=== PATIENT | female | born 1945 | race Caucasian/White ===

== ENCOUNTER 2017-05-28 07:50 | Day surgery (SDC) | payer MEDICARE, BC ==
[~2017-05-28 07:50] MED LIST: Lactated Ringers 1,000 ML IV SCH; Lidocaine 1%/Sod Bicarbonate in NS 8.4% 1 ML Syringe IDERM PRN; Sodium Chloride 0.9% 10 ML Syringe FLUSH PRN
--- NOTE | 2017-05-28 10:41 | PCM.PREANE ---
Preanesthetic Assessment - Anesthesia/Transfusion/Family Hx Anesthesia History: Prior Anesthesia Reaction (with LESLEY) Family History of Anesthesia Reaction: No Transfusion History: No Prior Transfusion(s) Intubation History: Unknown - Review of Systems General: No Symptoms Pulmonary: Shortness of Breath Cardiovascular: No Symptoms Gastrointestinal: No Symptoms Neurological: No Symptoms Other: Reports: None - Physical Assessment NPO Status Date: 05/27/17 NPO Status Time: 19:30 Pulse: 92 O2 Sat by Pulse Oximetry: 97 Respiratory Rate: 16 Blood Pressure: 185/91 Temperature: 98.9 C Vital Signs: Last Vital Signs Temp 37.2 C 05/28/17 08:00 Pulse 92 05/28/17 08:00 Resp 16 05/28/17 08:00 BP 185/91 H 05/28/17 08:00 Pulse Ox 97 05/28/17 08:00 Height: 1.6 m Weight: 45.359 kg ASA Class: 3 Mental Status: Alert & Oriented x3 Airway Class: Mallampati = 2 Dentition: Reports: Normal Dentition Thyro-Mental Finger Breadths: 2 Mouth Opening Finger Breadths: 3 ROM/Head Extension: Full Lungs: Other (insp crackles LLL) Cardiovascular: Regular Rate, Regular Rhythm, No Murmurs - Allergies Allergies/Adverse Reactions: Allergies Allergy/AdvReac Type Severity Reaction Status Date / Time aspirin Allergy Anaphylactic Verified 05/27/17 16:41 Shock garlic Allergy Indigestion Verified 05/27/17 16:41 - Acknowledgements Anesthesia Type Planned: MAC Pt an Appropriate Candidate for the Planned Anesthesia: Yes Alternatives and Risks of Anesthesia Discussed w Pt/Guardian: Yes Pt/Guardian Understands and Agrees with Anesthesia Plan: Yes PreAnesthesia Questionnaire HEENT History: Reports: Impaired Vision, Other (See Below) Other HEENT History: wears glasses, contacts Cardiovascular History: Reports: Hypertension Respiratory History: Reports: Bronchitis, Recurrent, COPD, SOB, Other (See Below ) (pt diagnosed with lung CA 2014) Other Respiratory History: bilateral lung cancer Gastrointestinal History: Reports: Chronic Constipation, GERD (pt states occas heartburn) Genitourinary History: Reports: Other (See Below) Other Genitourinary History: breast lumpectomy [employer] 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 Musculoskeletal History: Reports: Osteoarthritis Neurological History: Reports: Other (See Below) Other Neuro History: vertigo Psychiatric History: Reports: Anxiety Endocrine/Metabolic History: Reports: None Hematologic History: Reports: None Immunologic History: Reports: None Oncologic (Cancer) History: Reports: Breast, Lung Dermatologic History: Reports: Other (See Below) Other Dermatologic History: sebaceous cyst to back - Past Surgical History Cardiovascular Surgical History: Reports: None Respiratory Surgical History: Reports: Other (See Below) Other Respiratory Surgeries/Procedures: bronchoscopy GI Surgical History: Reports: Appendectomy Female Surgical History: Reports: Breast Biopsy, Hysterectomy Male Surgical History: Reports: None Endocrine Surgical History: Reports: None Musculoskeletal Surgical History: Reports: None Oncologic Surgical History: Reports: None Dermatological Surgical History: Reports: None - SUBSTANCE USE Smoking Status *Q: Current Every Day Smoker Recreational Drug Use History: No - HOME MEDS Home Medications: Home Meds Acetaminophen [Tylenol] 650 mg PO Q4H PRN 05/27/17 [History] Albuterol [Proair HFA] 2 puff INH Q4H PRN 05/27/17 [History] Ascorbic Acid [Vitamin C] 1,000 mg PO DAILY 05/27/17 [History] Benzonatate [Tessalon Perle] 200 mg PO TID PRN 05/27/17 [History] Cholecalciferol (Vitamin D3) [Vitamin D] 5,000 unit PO DAILY 05/27/17 [History] Dexamethasone [Dexamethasone] 8 mg PO ASDIRECTED 05/27/17 [History] Fluticasone/Salmeterol [Advair 500-50] 1 puff INH BID 05/27/17 [History] Folic Acid 1 mg PO DAILY 05/27/17 [History] Hydrochlorothiazide [Hydrochlorothiazide] 25 mg PO DAILY 05/27/17 [History] Hydrocodone/Acetaminophen [[place] 5-325] 1 tab PO Q4H PRN 05/27/17 [History] LORazepam [LORazepam] 1 tab PO Q6H PRN 05/27/17 [History] Megestrol [Megace 40 MG/ML Susp] 1 dose PO QID PRN 05/27/17 [History] Multivitamin [Daily Multiple Vitamin] 1 tab PO DAILY 05/27/17 [History] Nicotine [Nicoderm CQ] 14 mg TOP ASDIRECTED 05/27/17 [History] Ondansetron [Zofran Odt] 8 mg PO Q8H PRN 05/27/17 [History] Potassium Chloride [Klor-Con M20] 20 meq PO DAILY 05/27/17 [History] Saliva Substitution Combo No.9 [Biotene] 1 dose PO QID PRN 05/27/17 [History] Simvastatin [Zocor] 20 mg PO DAILY 05/27/17 [History] Tiotropium [Spiriva Handihaler] 2 puff INH DAILY 05/27/17 [History] buPROPion HCl [Wellbutrin Xl] 150 mg PO DAILY 05/27/17 [History] guaiFENesin [Mucinex] 600 mg PO BID PRN 05/27/17 [History] - CURRENT (IN HOUSE) MEDS Current Meds: Current Medications Lactated Ringer's (Ringers, Lactated) 1,000 mls @ 125 mls/hr IV ASDIRECTED PHILIP Stop: 05/28/17 23:00 Last Admin: 05/28/17 08:40 Dose: 125 mls/hr Lidocaine/Sodium Bicarbonate (Buffered Lidocaine 1% In Ns 8.4%) 0.25 ml IDERM ONETIME PRN PRN Reason: Prior to IV Start Stop: 05/28/17 18:00 Sodium Chloride (Saline Flush) 10 ml FLUSH ASDIRECTED PRN PRN Reason: Keep Vein Open Stop: 05/28/17 18:00
[2017-05-28] MEDS ORDERED: Propofol 200 MG/20 ML SDV ONE ×3 (10:47→11:36)
[2017-05-28] MEDS ORDERED: Lactated Ringers 1,000 ML ONE (11:38)
--- NOTE | 2017-05-28 12:00 | PCM.OPNOTE ---
- General Post-Op/Procedure Note Date of Surgery/Procedure: 05/28/17 Operative Procedure(s): colonoscopy to cecum Pre Op Diagnosis: abnormal transverse colon on PET scan Post-Op Diagnosis: Same Anesthesia Technique: MAC Primary Surgeon: Brannon Durham EBL in mLs: 0 Complications: None Condition: Good
--- NOTE | 2017-05-28 12:05 | PCM48HPAN ---
Post Anesthesia Note - EVALUATION WITHIN 48HRS OF ANESTHETIC Vital Signs in Normal Range: Yes Patient Participated in Evaluation: Yes Respiratory Function Stable: Yes Airway Patent: Yes Cardiovascular Function Stable: Yes Hydration Status Stable: Yes Pain Control Satisfactory: Yes Nausea and Vomiting Control Satisfactory: Yes Mental Status Recovered: Yes
--- NOTE | 2017-05-29 11:03 | OR ---
DATE OF OPERATION: 05/28/2017 SURGEON: Brannon Durham MD PREOPERATIVE DIAGNOSIS: Abnormal colon as per PET scan, and transverse colon. POSTOPERATIVE DIAGNOSIS: Abnormal colon as per PET scan, and transverse colon. OPERATION PERFORMED: Colonoscopy of cecum. FINDINGS: Normal study. ANESTHESIA: Done under IV sedation. DESCRIPTION OF PROCEDURE: The patient was taken to the endoscopy room, placed in a supine position, connected to monitoring equipment, and given IV sedation. She was placed in left lateral position. Perianal area was evaluated and is unremarkable. Rectal exam showed good sphincter tone. A video Olympus colonoscope was introduced into the rectum and threaded up to the cecum, where the appendicular orifice was noted. Prep was adequate, and there were pools of fecal material coating the cecum, ascending colon, and transverse colon, but these could be irrigated and sucked out. An excellent view of the cecum, ascending colon, transverse colon, descending colon, sigmoid colon, and rectum was obtained. The scope was slowly withdrawn showing this anatomy. CONDITION: The patient tolerated the procedure, and was sent to recovery room in a stable condition. POSTOPERATIVE FOLLOWUP: She will be followed up as needed in the clinic. ESTIMATED BLOOD LOSS: MMODAL /[id number]
== END 2017-05-28 12:34 | disposition home or self-care (01) ==
LOC: JD.SDS 07:50
PROVIDERS: ATTEND Surgery
DX: R93.3 Abnormal findings on diagnostic imaging of other parts of digestive tract (principal); K59.00 Constipation, unspecified; J44.9 Chronic obstructive pulmonary disease, unspecified; I10 Essential (primary) hypertension; M17.12 Unilateral primary osteoarthritis, left knee; C34.90 Malignant neoplasm of unspecified part of unspecified bronchus or lung; F17.210 Nicotine dependence, cigarettes, uncomplicated; Z88.6 Allergy status to analgesic agent; Z91.018 Allergy to other foods; Z79.51 Long term (current) use of inhaled steroids; Z79.899 Other long term (current) drug therapy; Z85.3 Personal history of malignant neoplasm of breast; Z82.5 Family history of asthma and other chronic lower respiratory diseases; Z82.49 Family history of ischemic heart disease and other diseases of the circulatory system; Z83.3 Family history of diabetes mellitus
CPT/HCPCS: J1642; J2704; J7050; J7120

== ENCOUNTER 2017-06-26 13:54 | Inpatient (IN) | payer MEDICARE, BC ==
[2017-06-26] MEDS ORDERED: Sodium Chloride 0.9% 10 ML Syringe FLUSH PRN (14:50)
[2017-06-26] MEDS ORDERED: Ondansetron 4 MG/2 ML SDV IVPUSH ONE (14:51)
[2017-06-26] MEDS: Sodium Chloride 0.9% 1,000 ML IV SCH ×3 (15:19→17:42)
--- NOTE | 2017-06-26 15:56 | CT ---
Head CT Technique: Multiple axial sections through the brain were obtained. Intravenous contrast was not utilized. Comparison: No previous intracranial imaging. Findings: Ventricles along the basal cisterns and sulci over convexities are mildly prominent. No abnormal parenchymal densities are seen. No evidence of intracranial hemorrhage. No midline shift or mass effect is seen. Slight atherosclerotic calcification is seen within the left vertebral vessel and carotid siphon. Bone window settings were reviewed which shows no acute abnormality. Visualized sinuses are clear. Impression: 1. Slight senescent change. 2. No acute intracranial abnormality is identified on noncontrast head CT. Diagnostic code #2
[2017-06-26] MEDS ORDERED: Sodium Chloride 0.9% 1,000 ML ONE (17:40)
--- NOTE | 2017-06-26 19:31 | EDM.PDOC ---
ED HPI GENERAL MEDICAL PROBLEM - General Chief Complaint: Syncope Stated Complaint: WEAKNESS/FALLING Time Seen by Provider: 06/26/17 14:23 Source of Information: Reports: Patient, Family History Limitations: Reports: No Limitations - History of Present Illness INITIAL COMMENTS - FREE TEXT/NARRATIVE: The patient presents today with generalized weakness, fall, and confusion. The patient has lung cancer and she is on chemo therapy. She last had chemo on June 03. She said she was doing good and 2 weeks ago she stepped wrong on her deck and she fell backward and hit her head. She had no LOC. She did not hurt her neck. She was seen by Dr Church the next day and he did a CT of her head. Since then she has not been doing well. She has a headache at times but none now. She has nausea and no appetite. She did not vomit. She is not drinking or eating much. She denies fever, chills, cough, chest pain, shortness of breath or abdominal pain. She has no dysuria. She is confused at home at times. She is not doing well. She was diagnosed with a concussion by Dr Church. Onset: Gradual Duration: Week(s): (2) Severity: Moderate Improves with: Reports: None Worsens with: Reports: None Associated Symptoms: Reports: Headaches, Loss of Appetite, Nausea/Vomiting. Denies: Confusion, Chest Pain, Cough, Fever/Chills, Shortness of Breath - Related Data Allergies Allergy/AdvReac Type Severity Reaction Status Date / Time aspirin Allergy Anaphylactic Verified 06/26/17 14:16 Shock garlic Allergy Indigestion Verified 06/26/17 14:16 Home Meds: Home Meds Acetaminophen [Tylenol] 650 mg PO Q4H PRN 05/27/17 [History] Albuterol [Proair HFA] 2 puff INH Q4H PRN 05/27/17 [History] Benzonatate [Tessalon Perle] 200 mg PO TID PRN 05/27/17 [History] Cholecalciferol (Vitamin D3) [Vitamin D] 5,000 unit PO DAILY 05/27/17 [History] Dexamethasone [Dexamethasone] 8 mg PO ASDIRECTED 05/27/17 [History] Fluticasone/Salmeterol [Advair 500-50] 1 puff INH BID 05/27/17 [History] Folic Acid 1 mg PO DAILY 05/27/17 [History] Hydrocodone/Acetaminophen [[place] 5-325] 1 tab PO Q4H PRN 05/27/17 [History] LORazepam [LORazepam] 1 tab PO Q6H PRN 05/27/17 [History] Megestrol [Megace 40 MG/ML Susp] 1 dose PO QID PRN 05/27/17 [History] Nicotine [Nicoderm CQ] 14 mg TOP ASDIRECTED 05/27/17 [History] Ondansetron [Zofran Odt] 8 mg PO Q8H PRN 05/27/17 [History] Saliva Substitution Combo No.9 [Biotene] 1 dose PO QID PRN 05/27/17 [History] Simvastatin [Zocor] 20 mg PO DAILY 05/27/17 [History] Tiotropium [Spiriva Handihaler] 2 puff INH DAILY 05/27/17 [History] buPROPion HCl [Wellbutrin Xl] 300 mg PO DAILY 05/27/17 [History] guaiFENesin [Mucinex] 600 mg PO BID PRN 05/27/17 [History] Past Medical History HEENT History: Reports: Impaired Vision, Other (See Below) Other HEENT History: wears glasses, contacts Cardiovascular History: Reports: Hypertension Respiratory History: Reports: Bronchitis, Recurrent, COPD, SOB, Other (See Below ) Other Respiratory History: bilateral lung cancer Gastrointestinal History: Reports: Chronic Constipation, GERD Genitourinary History: Reports: Other (See Below) Other Genitourinary History: breast lumpectomy [employer] 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: Musculoskeletal History: Reports: Osteoarthritis Neurological History: Reports: Other (See Below) Other Neuro History: vertigo Psychiatric History: Reports: Anxiety Endocrine/Metabolic History: Reports: None Hematologic History: Reports: None Immunologic History: Reports: None Oncologic (Cancer) History: Reports: Breast, Lung Dermatologic History: Reports: Other (See Below) Other Dermatologic History: sebaceous cyst to back - Past Surgical History Cardiovascular Surgical History: Reports: None Respiratory Surgical History: Reports: Other (See Below) Other Respiratory Surgeries/Procedures: bronchoscopy GI Surgical History: Reports: Appendectomy Female Surgical History: Reports: Breast Biopsy, Hysterectomy Endocrine Surgical History: Reports: None Musculoskeletal Surgical History: Reports: None Oncologic Surgical History: Reports: None Dermatological Surgical History: Reports: None Social & Family History - Tobacco Use Smoking Status *Q: Current Every Day Smoker Years of Tobacco use: 50 Packs/Tins Daily: 0.5 - Caffeine Use Caffeine Use: Reports: Coffee - Recreational Drug Use Recreational Drug Use: No Drug Use in Last 12 Months: No ED ROS GENERAL - Review of Systems Review Of Systems: See Below Constitutional: Reports: Weakness, Fatigue HEENT: Reports: No Symptoms Respiratory: Reports: No Symptoms Cardiovascular: Reports: No Symptoms GI/Abdominal: Reports: Decreased Appetite, Nausea. Denies: Abdominal Pain, Vomiting : Reports: No Symptoms Musculoskeletal: Reports: No Symptoms Skin: Reports: No Symptoms Neurological: Reports: Confusion, Headache ED EXAM, GENERAL - Physical Exam Exam: See Below Exam Limited By: No Limitations General Appearance: Alert, No Apparent Distress Ears: Normal External Exam Nose: Normal Inspection Head: Atraumatic, Normocephalic Neck: Normal Inspection Respiratory/Chest: No Respiratory Distress, Lungs Clear, Normal Breath Sounds Cardiovascular: Regular Rate, Rhythm, No Edema, No Murmur GI/Abdominal: Soft, Non-Tender, No Organomegaly, No Mass Back Exam: Normal Inspection Extremities: Normal Inspection Neurological: Alert, Oriented (to person, place and time. She was a little off with the day.), No Motor/Sensory Deficits EKG INTERPRETATION EKG Date: 06/26/17 Time: 15:36 Rhythm: NSR Rate (Beats/Min): 88 [place]: Normal P-Wave: Present QRS: Normal ST-T: Normal QT: Prolonged Course - Vital Signs Last Recorded V/S: Last Vital Signs Temp 97.1 F 06/26/17 14:12 Pulse 97 06/26/17 14:12 Resp 12 06/26/17 14:12 BP 172/92 H 06/26/17 14:12 Pulse Ox 100 06/26/17 14:12 - Orders/Labs/Meds Orders: Active Orders 24 hr Category Date Time Status Patient Status [ADT] Routine ADT 06/26/17 19:30 Active Cardiac Monitoring [RC] . DIRECTED Care 06/26/17 14:50 Active EKG Documentation Completion [RC] STAT Care 06/26/17 14:50 Active Peripheral IV Care [RC] . DIRECTED Care 06/26/17 14:50 Active INFLUENZA A+B AG SCREEN [RM] Stat Lab 06/26/17 18:55 Ordered UA W/MICROSCOPIC [URIN] Stat Lab 06/26/17 14:50 Ordered Sodium Chloride 0.9% [Normal Saline] 1,000 ml Med 06/26/17 15:00 Active IV .BOLUS Sodium Chloride 0.9% [Normal Saline] 1,000 ml Med 06/26/17 17:45 Active IV ASDIRECTED Sodium Chloride 0.9% [Saline Flush] Med 06/26/17 14:50 Active 10 ml FLUSH ASDIRECTED PRN Peripheral IV Insertion Adult [OM.PC] Stat Oth 06/26/17 14:50 Ordered Medication Orders Sodium Chloride (Normal Saline) 1,000 mls @ 1,000 mls/hr IV .BOLUS PHILIP Last Admin: 06/26/17 17:41 Dose: 1,000 mls/hr Infusion: 06/26/17 16:19 Dose: 1,000 mls/hr Admin: 06/26/17 15:19 Dose: 1,000 mls/hr Sodium Chloride (Normal Saline) 1,000 mls @ 150 mls/hr IV ASDIRECTED PHILIP Last Admin: 06/26/17 17:42 Dose: 150 mls/hr Sodium Chloride (Saline Flush) 10 ml FLUSH ASDIRECTED PRN PRN Reason: Keep Vein Open Last Admin: 06/26/17 15:22 Dose: 10 ml Labs: Laboratory Tests 06/26/17 06/26/17 Range/Units 15:05 15:05 WBC 6.23 (3.98-10.04) K/mm3 RBC 3.26 L (3.98-5.22) M/mm3 Hgb 10.6 L (11.2-15.7) gm/L Hct 32.2 L (34.1-44.9) % MCV 98.8 H (79.4-94.8) fl MCH 32.5 H (25.6-32.2) pg MCHC 32.9 (32.2-35.5) g/dl RDW Std Deviation 44.8 (36.4-46.3) fL Plt Count 237 (182-369) K/mm3 MPV 9.9 (9.4-12.3) fl Neut % (Auto) 65.1 (34.0-71.1) % Lymph % (Auto) 18.3 L (19.3-51.7) % Tripp % (Auto) 14.8 H (4.7-12.5) % Eos % (Auto) 0.8 (0.7-5.8) Baso % (Auto) 0.2 (0.1-1.2) % Neut # (Auto) 4.06 (1.56-6.13) K/mm3 Lymph # (Auto) 1.14 L (1.18-3.74) K/mm3 Tripp # (Auto) 0.92 H (0.24-0.36) K/mm3 Eos # (Auto) 0.05 (0.04-0.36) K/mm3 Baso # (Auto) 0.01 (0.01-0.08) K/mm3 Sodium 140 (136-145) mEq/L Potassium 3.5 (3.5-5.1) mEq/L Chloride 106 (98-107) mEq/L Carbon Dioxide 22 (21-32) mEq/L Anion Gap 15.5 H (5-15) BUN 14 (7-18) mg/dL Creatinine 0.7 (0.55-1.02) mg/dL Est Cr Clr Drug Dosing 51.41 mL/min Estimated GFR (MDRD) > 60 (>60) mL/min BUN/Creatinine Ratio 20.0 H (14-18) Glucose 77 L (80-115) mg/dL Calcium 8.9 (8.5-10.1) mg/dL Magnesium 1.5 L (1.8-2.4) mg/dl Total Bilirubin 0.5 (0.2-1.0) mg/dL AST 22 (15-37) U/L ALT 14 (14-59) U/L Alkaline Phosphatase 51 (46-116) U/L Total Protein 6.6 (6.4-8.2) g/dl Albumin 2.7 L (3.4-5.0) g/dl Globulin 3.9 gm/dL Albumin/Globulin Ratio 0.7 L (1-2) Meds: Medications Generic Name Dose Route Start Last Admin Trade Name Freq PRN Reason Stop Dose Admin Sodium Chloride 1,000 mls @ 1,000 mls/hr 06/26/17 15:00 06/26/17 17:41 Normal Saline IV 1,000 mls/hr .BOLUS PHILIP Administration Sodium Chloride 1,000 mls @ 150 mls/hr 06/26/17 17:45 06/26/17 17:42 Normal Saline IV 150 mls/hr ASDIRECTED PHILIP Administration Sodium Chloride 10 ml 06/26/17 14:50 06/26/17 15:22 Saline Flush FLUSH 10 ml ASDIRECTED PRN Administration Keep Vein Open Discontinued Medications Generic Name Dose Route Start Last Admin Trade Name Freq PRN Reason Stop Dose Admin Sodium Chloride Confirm 06/26/17 17:40 06/26/17 17:42 Normal Saline Administered 06/26/17 17:41 Not Given Dose 1,000 mls @ as directed .ROUTE .STK-MED ONE Ondansetron HCl 4 mg 06/26/17 14:51 06/26/17 15:21 Zofran IVPUSH 06/26/17 14:52 4 mg ONETIME ONE Administration - Re-Assessments/Exams Free Text/Narrative Re-Assessment/Exam: 06/26/17 19:33 I ordered an IV NS 1L bolus, zofran 4mg IV, labs, CT of her head and an EKG. Her EKG shows a NSR with no acute changes. Her Hgb was a little low at 10.6. Her anion gap was elevated at 15.5. Her BUN/creatinine ratio is elevated to 20. Her glucose was low at 77. She did eat. Her magnesium was low at 1.5. I feel she has a concussion, confusion, failure to thrive and dehydration. I feel she needs to be admitted. I called Dr Mariano and she accepted the patient. Departure - Departure Time of Disposition: 19:40 Disposition: Admitted As Inpatient 68 Condition: Fair Clinical Impression: Dehydration, Failure to thrive in adult, Confusion Lung cancer Qualifiers: Laterality: unspecified laterality Lung location: unspecified part of lung Qualified Code(s): C34.90 - Malignant neoplasm of unspecified part of unspecified bronchus or lung Concussion Qualifiers: Encounter type: sequela Loss of consciousness presence/duration: without LOC Qualified Code(s): S06.0X0S - Concussion without loss of consciousness, sequela Referrals: Joey Church Jr, MD [Primary Care Provider] - Forms: ED Department Discharge - My Orders Last 24 Hours: My Active Orders 06/26/17 14:50 Cardiac Monitoring [RC] . DIRECTED EKG Documentation Completion [RC] STAT Peripheral IV Care [RC] . DIRECTED UA W/MICROSCOPIC [URIN] Stat Sodium Chloride 0.9% [Saline Flush] 10 ml FLUSH ASDIRECTED PRN Peripheral IV Insertion Adult [OM.PC] Stat 06/26/17 15:00 Sodium Chloride 0.9% [Normal Saline] 1,000 ml IV .BOLUS 06/26/17 17:45 Sodium Chloride 0.9% [Normal Saline] 1,000 ml IV ASDIRECTED 06/26/17 18:55 INFLUENZA A+B AG SCREEN [RM] Stat 06/26/17 19:30 Patient Status [ADT] Routine - Assessment/Plan Last 24 Hours: My Active Orders 06/26/17 14:50 Cardiac Monitoring [RC] . DIRECTED EKG Documentation Completion [RC] STAT Peripheral IV Care [RC] . DIRECTED UA W/MICROSCOPIC [URIN] Stat Sodium Chloride 0.9% [Saline Flush] 10 ml FLUSH ASDIRECTED PRN Peripheral IV Insertion Adult [OM.PC] Stat 06/26/17 15:00 Sodium Chloride 0.9% [Normal Saline] 1,000 ml IV .BOLUS 06/26/17 17:45 Sodium Chloride 0.9% [Normal Saline] 1,000 ml IV ASDIRECTED 06/26/17 18:55 INFLUENZA A+B AG SCREEN [RM] Stat 06/26/17 19:30 Patient Status [ADT] Routine
[2017-06-26] MEDS ORDERED: Ondansetron 4 MG Tab.DIS PO PRN (20:28)
[2017-06-26] MEDS ORDERED: SALIVA SUBSTITUTION COMBO NO 9 PO PRN (20:28)
[2017-06-26] MEDS ORDERED: guaiFENesin 600 MG Tab.ER PO PRN (20:28)
[2017-06-26] MEDS ORDERED: Acetaminophen/HYDROcodone 325-5 MG Tab PO PRN (20:28)
[2017-06-26] MEDS ORDERED: Metoclopramide 10 MG/2 ML SDV IVPUSH PRN (20:34)
[2017-06-26] MEDS ORDERED: Magnesium Sulfate/Water 2 GM in Premix Bag 1 BAG IV ONE (20:35)
--- NOTE | 2017-06-26 20:35 | PCM.HP ---
H&P History of Present Illness - General Date of Service: 06/26/17 Admit Problem/Dx: Admission Diagnosis/Problem Admission Diagnosis/Problem Failure to thrive Source of Information: Patient, Family, Provider History Limitations: Reports: No Limitations - History of Present Illness Initial Comments - Free Text/Narative: 72 year old female who actively smokes tobacco presents with generalized weakness and confusion. The patient has a history of lung CA and has been getting CTX. She fell roughly 2 weeks ago and had a CT of the head that was unremarkable. The patient was seen by her PCP who diagnosed her with a concussion. She has been forgetful and confused reportedly since hitting her head after missing a step on her deck. The patient denies F/C, N/V but admits to decreased oral intake as well as a headache. Onset of Symptoms: Reports: Gradual Symptom Onset Date: 06/19/17 Duration of Symptoms: Reports: Week(s):, Getting Worse Location: Reports: Generalized Severity: Moderate Improves with: Reports: Medication Worsens with: Reports: None Associated Symptoms: Reports: Headaches, Loss of Appetite, Nausea/Vomiting, Weakness - Related Data Allergies/Adverse Reactions: Allergies Allergy/AdvReac Type Severity Reaction Status Date / Time aspirin Allergy Anaphylactic Verified 06/26/17 20:47 Shock garlic Allergy Indigestion Verified 06/26/17 20:47 Home Medications: Home Meds Acetaminophen [Tylenol] 650 mg PO Q4H PRN 05/27/17 [History] Albuterol [Proair HFA] 2 puff INH Q4H PRN 05/27/17 [History] Benzonatate [Tessalon Perle] 200 mg PO TID PRN 05/27/17 [History] Fluticasone/Salmeterol [Advair 500-50] 1 puff INH BID 05/27/17 [History] Folic Acid 1 mg PO DAILY 05/27/17 [History] Hydrocodone/Acetaminophen [Huger 5-325] 1 tab PO Q4H PRN 05/27/17 [History] LORazepam [LORazepam] 1 tab PO Q6H PRN 05/27/17 [History] Megestrol [Megace 40 MG/ML Susp] 20 ml PO DAILY 05/27/17 [History] Saliva Substitution Combo No.9 [Biotene] 1 dose PO QID PRN 05/27/17 [History] Simvastatin [Zocor] 20 mg PO DAILY 05/27/17 [History] Tiotropium [Spiriva Handihaler] 2 puff INH DAILY 05/27/17 [History] buPROPion HCl [Wellbutrin Xl] 300 mg PO DAILY 05/27/17 [History] guaiFENesin [Mucinex] 600 mg PO BID PRN 05/27/17 [History] Past Medical History HEENT History: Reports: Impaired Vision, Other (See Below) Other HEENT History: wears glasses, contacts Cardiovascular History: Reports: Hypertension Respiratory History: Reports: Bronchitis, Recurrent, COPD, SOB, Other (See Below ) Other Respiratory History: bilateral lung cancer Gastrointestinal History: Reports: Chronic Constipation, GERD Genitourinary History: Reports: Other (See Below) Other Genitourinary History: breast lumpectomy [employer] History: Reports: Musculoskeletal History: Reports: Osteoarthritis Neurological History: Reports: Other (See Below) Other Neuro History: vertigo Psychiatric History: Reports: Anxiety Endocrine/Metabolic History: Reports: None Hematologic History: Reports: None Immunologic History: Reports: None Oncologic (Cancer) History: Reports: Breast, Lung Dermatologic History: Reports: Other (See Below) Other Dermatologic History: sebaceous cyst to back - Past Surgical History Cardiovascular Surgical History: Reports: None Respiratory Surgical History: Reports: Other (See Below) Other Respiratory Surgeries/Procedures: bronchoscopy GI Surgical History: Reports: Appendectomy Female Surgical History: Reports: Breast Biopsy, Hysterectomy Endocrine Surgical History: Reports: None Musculoskeletal Surgical History: Reports: None Oncologic Surgical History: Reports: None Dermatological Surgical History: Reports: None Social & Family History - Tobacco Use Smoking Status *Q: Current Every Day Smoker Years of Tobacco use: 50 Packs/Tins Daily: 0.5 - Caffeine Use Caffeine Use: Reports: Coffee - Recreational Drug Use Recreational Drug Use: No Drug Use in Last 12 Months: No H&P Review of Systems - Review of Systems: Review Of Systems: See Below General: Reports: Weakness HEENT: Reports: No Symptoms Pulmonary: Reports: Shortness of Breath Cardiovascular: Reports: No Symptoms Gastrointestinal: Reports: No Symptoms Genitourinary: Reports: No Symptoms Musculoskeletal: Reports: No Symptoms Skin: Reports: No Symptoms Psychiatric: Reports: Confusion Neurological: Reports: No Symptoms Hematologic/Lymphatic: Reports: No Symptoms Immunologic: Reports: No Symptoms Exam - Exam Exam: See Below - Vital Signs Vital Signs: Last Vital Signs Temp 36.2 C 06/26/17 14:12 Pulse 97 06/26/17 14:12 Resp 12 06/26/17 14:12 BP 172/92 H 06/26/17 14:12 Pulse Ox 100 06/26/17 14:12 Weight: 43.545 kg - Exam Quality Assessment: Supplemental Oxygen, DVT Prophylaxis General: Alert, Oriented HEENT: Conjunctiva Clear, Nares Patent, Normal Nasal Septum, Pupils Equal, Pupils Reactive, PERRLA Neck: Trachea Midline Lungs: Normal Respiratory Effort Cardiovascular: Regular Rate, Regular Rhythm GI/Abdominal Exam: Normal Bowel Sounds, Soft, Non-Tender, No Organomegaly, No Distention (Female) Exam: Deferred Rectal (Female) Exam: Normal Exam, Normal Rectal Tone Back Exam: Normal Inspection Extremities: Normal Inspection, Non-Tender, Slow Capillary Refill Skin: Warm Neurological: Cranial Nerves Intact Neuro Extensive - Mental Status: Alert, Oriented x3 Neuro Extensive - Motor, Sensory, Reflexes: CN II-XII Intact Psychiatric: Alert, Normal Affect, Normal Mood - Patient Data Result Diagrams: 06/27/17 05:33 06/27/17 05:33 *Q Meaningful Use (ADM) - VTE *Q VTE Criteria *Q: - Stroke *Q Stroke Criteria *Q: - AMI *Q AMI Criteria *Q: - Problem List (1) Dehydration SNOMED Code(s): 80996330 ICD Code: E86.0 - DEHYDRATION Status: Acute Current Visit: Yes (2) Failure to thrive in adult SNOMED Code(s): 738140893 ICD Code: R62.7 - ADULT FAILURE TO THRIVE Status: Acute Current Visit: Yes (3) Lung cancer SNOMED Code(s): 921900296 ICD Code: C34.90 - MALIGNANT NEOPLASM OF UNSP PART OF UNSP BRONCHUS OR LUNG Status: Acute Current Visit: Yes Qualifiers: Laterality: unspecified laterality Lung location: unspecified part of lung Qualified Code(s): C34.90 - Malignant neoplasm of unspecified part of unspecified bronchus or lung Problem List Initiated/Reviewed/Updated: Yes Orders Last 24hrs: Active Orders 24 hr Category Date Time Status Activity as Tolerated [RC] .Routine Care 06/26/17 20:31 Ordered Clear Liquid Diet [DIET] Diet 06/27/17 Breakfast Ordered INFLUENZA A,B, H1N1 BY PCR [MREF] Routine Lab 06/26/17 20:32 Ordered MYCOPLASMA PNEUMONIAE IGM AB [CHEM] Routine Lab 06/27/17 05:00 Ordered STREP PNEUMONIAE ANTIGEN [MREF] Routine Lab 06/26/17 21:00 Ordered Benzonatate [Tessalon Perles] Med 06/26/17 20:28 Ordered 200 mg PO TID PRN Cholecalciferol (Vitamin D3) [Vitamin D] Med 06/27/17 09:00 Ordered 5,000 unit PO DAILY Fluticasone/Salmeterol Med 06/26/17 21:00 Ordered 1 puff INH BID Folic Acid Med 06/27/17 09:00 Ordered 1 mg PO DAILY Hydrocodone/Acetaminophen Med 06/26/17 20:28 Ordered 1 tab PO Q4H PRN LORazepam [Ativan] Med 06/26/17 20:28 Ordered 1 tab PO Q6H PRN Metoclopramide [Reglan] Med 06/26/17 20:34 Ordered 10 mg IVPUSH Q6H PRN Ondansetron Med 06/26/17 20:28 Ordered 8 mg PO Q8H PRN Saliva Substitution Combo No.9 [Biotene] Med 06/26/17 20:28 Ordered 1 dose PO QID PRN Simvastatin [Zocor] Med 06/27/17 09:00 Ordered 20 mg PO DAILY Tiotropium Med 06/27/17 09:00 Ordered 2 puff INH DAILY buPROPion [Wellbutrin XL] Med 06/27/17 09:00 Ordered 300 mg PO DAILY guaiFENesin [Mucinex] Med 06/26/17 20:28 Ordered 600 mg PO BID PRN Medication Orders Benzonatate (Tessalon Perles) 200 mg PO TID PRN PRN Reason: Cough Bupropion HCl (Wellbutrin Xl) 300 mg PO DAILY PHILIP Folic Acid (Folic Acid) 1 mg PO DAILY PHILIP Guaifenesin (Mucinex) 600 mg PO BID PRN PRN Reason: cold symptoms Sodium Chloride (Normal Saline) 1,000 mls @ 1,000 mls/hr IV .BOLUS PHILIP Last Admin: 06/26/17 17:41 Dose: 1,000 mls/hr Infusion: 06/26/17 16:19 Dose: 1,000 mls/hr Admin: 06/26/17 15:19 Dose: 1,000 mls/hr Sodium Chloride (Normal Saline) 1,000 mls @ 150 mls/hr IV ASDIRECTED PHILIP Last Admin: 06/26/17 17:42 Dose: 150 mls/hr Lorazepam (Ativan) mg PO Q6H PRN PRN Reason: Anxiety Non-Formulary Medication (Cholecalciferol (Vitamin D3) [Vitamin D]) 5,000 unit PO DAILY PHIILP Non-Formulary Medication (Fluticasone/Salmeterol) 1 puff INH BID PHILIP Non-Formulary Medication (Hydrocodone/Acetaminophen) 1 tab PO Q4H PRN PRN Reason: Pain Non-Formulary Medication (Ondansetron) 8 mg PO Q8H PRN PRN Reason: Nausea Non-Formulary Medication (Saliva Substitution Combo No.9 [Biotene]) 1 dose PO QID PRN PRN Reason: dry mouth Non-Formulary Medication (Tiotropium) 2 puff INH DAILY PHILIP Simvastatin (Zocor) 20 mg PO DAILY PHILIP Sodium Chloride (Saline Flush) 10 ml FLUSH ASDIRECTED PRN PRN Reason: Keep Vein Open Last Admin: 06/26/17 15:22 Dose: 10 ml Assessment/Plan Comment:: Impression: AMS improved after hydration; can not exclude infectious process Dehydration--decrease appetite ARF--pre-renal Hx of lung CA actively smoking tobacco requires Nicotine substitute. Hx of COPD Doubt syncopal episode Chronic HTN Anxiety Plan: IVF Infectious work up Home meds Tobacco cessation education Daily Labs Consult PT/OT/CM (re: ) DVT/GI prophylaxis
[2017-06-26] MEDS ORDERED: Albuterol 0.083% 2.5 MG/3 ML Neb Soln NEB PRN (20:43)
[2017-06-26] MEDS ORDERED: Albuterol/Ipratropium 3.0-0.5 MG/3 ML Neb Soln NEB PRN (20:43)
[2017-06-26] MEDS ORDERED: Temazepam 7.5 MG Cap PO PRN (20:44)
[2017-06-26] MEDS: Formoterol/Mometasone 200-5 MCG 8.8 GM Inhaler IH SCH (21:41)
[2017-06-26] MEDS: Mometasone Furoate Powder 220 MCG/Puff 14 Dose Inhaler INH SCH (23:14)
[2017-06-27] MEDS: Sodium Chloride 0.9% 1,000 ML IV SCH (01:30)
[2017-06-27] MEDS: Mometasone Furoate Powder 220 MCG/Puff 14 Dose Inhaler INH SCH (07:04)
[2017-06-27] MEDS: Tiotropium Inhaler 18 MCG Inhalation Powder Cap Kit of 5 INH SCH (08:29)
[2017-06-27] MEDS: Formoterol/Mometasone 200-5 MCG 8.8 GM Inhaler IH SCH (08:30)
[2017-06-27] MEDS ORDERED: Benzonatate 100 MG Cap PO PRN (09:00)
--- NOTE | 2017-06-27 09:35 | PCM.PN ---
- General Info Date of Service: 06/27/17 Functional Status: Reports: Ambulating - Review of Systems General: Reports: Weakness, Fatigue, Malaise HEENT: Reports: No Symptoms Pulmonary: Reports: Shortness of Breath Cardiovascular: Reports: No Symptoms Gastrointestinal: Reports: No Symptoms Genitourinary: Reports: No Symptoms Musculoskeletal: Reports: No Symptoms Skin: Reports: No Symptoms Neurological: Reports: No Symptoms Psychiatric: Reports: No Symptoms - Patient Data Vitals - Most Recent: Last Vital Signs Temp 36.3 C 06/27/17 08:13 Pulse 88 06/27/17 08:13 Resp 20 06/27/17 08:13 BP 157/89 H 06/27/17 08:13 Pulse Ox 95 06/27/17 08:36 Weight - Most Recent: 45.994 kg I&O - Last 24 Hours: Intake & Output 06/26/17 06/27/17 06/27/17 22:59 06:59 14:59 Intake Total 854 Output Total 850 Balance 4 Lab Results Last 24 Hours: Laboratory Results - last 24 hr 06/27/17 06/27/17 06/27/17 Range/Units 05:28 05:33 05:33 WBC 6.08 (3.98-10.04) K/mm3 RBC 2.99 L (3.98-5.22) M/mm3 Hgb 9.6 L (11.2-15.7) gm/L Hct 29.8 L (34.1-44.9) % MCV 99.7 H (79.4-94.8) fl MCH 32.1 (25.6-32.2) pg MCHC 32.2 (32.2-35.5) g/dl RDW Std Deviation 45.1 (36.4-46.3) fL Plt Count 187 (182-369) K/mm3 MPV 10.1 (9.4-12.3) fl Neut % (Auto) 76.0 H (34.0-71.1) % Lymph % (Auto) 9.5 L (19.3-51.7) % [place] % (Auto) 13.2 H (4.7-12.5) % Eos % (Auto) 0.5 L (0.7-5.8) Baso % (Auto) 0.3 (0.1-1.2) % Neut # (Auto) 4.62 (1.56-6.13) K/mm3 Lymph # (Auto) 0.58 L (1.18-3.74) K/mm3 Stan[place] # (Auto) 0.80 H (0.24-0.36) K/mm3 Eos # (Auto) 0.03 L (0.04-0.36) K/mm3 Baso # (Auto) 0.02 (0.01-0.08) K/mm3 Manual Slide Review Abnormal smear Sodium 140 (136-145) mEq/L Potassium 3.4 L (3.5-5.1) mEq/L Chloride 108 H (98-107) mEq/L Carbon Dioxide 20 L (21-32) mEq/L Anion Gap 15.4 H (5-15) BUN 8 (7-18) mg/dL Creatinine 0.6 (0.55-1.02) mg/dL Est Cr Clr Drug Dosing 63.35 mL/min Estimated GFR (MDRD) > 60 (>60) mL/min BUN/Creatinine Ratio 13.3 L (14-18) Glucose 89 (80-115) mg/dL Lactic Acid (0.4-2.0) mmol/L Calcium 7.7 L (8.5-10.1) mg/dL Magnesium 1.9 (1.8-2.4) mg/dl Troponin I < 0.017 (0.00-0.056) ng/mL C-Reactive Protein 7.3 H* (<1.0) mg/dL Urine Color Yellow (Yellow) Urine Appearance Slt cloudy H (Clear) Urine pH 6.5 (5.0-8.0) Ur Specific [place] 1.025 (1.005-1.030) Urine Protein 1+ H (Negative) Urine Glucose (UA) Negative (Negative) Urine Ketones 1+ H (Negative) Urine Occult Blood Negative (Negative) Urine Nitrite Negative (Negative) Urine Bilirubin Negative (Negative) Urine Urobilinogen 0.2 (0.2-1.0) Ur Leukocyte Esterase Negative (Negative) Urine RBC 0-5 (0-5) /hpf Urine WBC 0-5 (0-5) /hpf Ur Epithelial Cells 5-10 H (0-5) /hpf Urine Bacteria Moderate H (FEW) /hpf Urine Mucus Moderate H (FEW) /hpf Mycoplasma pneumon IgM Positive H (NEGATIVE) 06/27/17 Range/Units 05:33 WBC (3.98-10.04) K/mm3 RBC (3.98-5.22) M/mm3 Hgb (11.2-15.7) gm/L Hct (34.1-44.9) % MCV (79.4-94.8) fl MCH (25.6-32.2) pg MCHC (32.2-35.5) g/dl RDW Std Deviation (36.4-46.3) fL Plt Count (182-369) K/mm3 MPV (9.4-12.3) fl Neut % (Auto) (34.0-71.1) % Lymph % (Auto) (19.3-51.7) % [place] % (Auto) (4.7-12.5) % Eos % (Auto) (0.7-5.8) Baso % (Auto) (0.1-1.2) % Neut # (Auto) (1.56-6.13) K/mm3 Lymph # (Auto) (1.18-3.74) K/mm3 [place] # (Auto) (0.24-0.36) K/mm3 Eos # (Auto) (0.04-0.36) K/mm3 Baso # (Auto) (0.01-0.08) K/mm3 Manual Slide Review Sodium (136-145) mEq/L Potassium (3.5-5.1) mEq/L Chloride (98-107) mEq/L Carbon Dioxide (21-32) mEq/L Anion Gap (5-15) BUN (7-18) mg/dL Creatinine (0.55-1.02) mg/dL Est Cr Clr Drug Dosing mL/min Estimated GFR (MDRD) (>60) mL/min BUN/Creatinine Ratio (14-18) Glucose (80-115) mg/dL Lactic Acid 0.8 (0.4-2.0) mmol/L Calcium (8.5-10.1) mg/dL Magnesium (1.8-2.4) mg/dl Troponin I (0.00-0.056) ng/mL C-Reactive Protein (<1.0) mg/dL Urine Color (Yellow) Urine Appearance (Clear) Urine pH (5.0-8.0) Ur Specific [place] (1.005-1.030) Urine Protein (Negative) Urine Glucose (UA) (Negative) Urine Ketones (Negative) Urine Occult Blood (Negative) Urine Nitrite (Negative) Urine Bilirubin (Negative) Urine Urobilinogen (0.2-1.0) Ur Leukocyte Esterase (Negative) Urine RBC (0-5) /hpf Urine WBC (0-5) /hpf Ur Epithelial Cells (0-5) /hpf Urine Bacteria (FEW) /hpf Urine Mucus (FEW) /hpf Mycoplasma pneumon IgM (NEGATIVE) Farooq Results Last 24 Hours: Microbiology 06/26/17 22:15 Influenza Type A Antigen Screen - Final Nasal Aspirate, Unspecified NEGATIVE INFLUENZA A VIRUS AG Influenza Type B Antigen Screen - Final NEGATIVE INFLUENZA B VIRUS AG Med Orders - Current: Current Medications Hydrocodone Bitart/Acetaminophen (Bells 325-5 Mg) 1 tab PO Q4H PRN PRN Reason: Pain Albuterol (Proventil Neb Soln) 2.5 mg NEB Q4HRRT PRN PRN Reason: Shortness of Breath Albuterol/Ipratropium (Duoneb 3.0-0.5 Mg/3 Ml) 3 ml NEB QID PRN PRN Reason: Shortness of Breath Benzonatate (Tessalon Perles) 200 mg PO TID PRN PRN Reason: Cough Bupropion HCl (Wellbutrin Xl) 300 mg PO DAILY ON LICENSE OF [facility] Cholecalciferol (Vitamin D3) 5,000 units PO DAILY ON LICENSE OF [facility] Enoxaparin Sodium (Lovenox) 40 mg SUBCUT DAILY ON LICENSE OF [facility] Folic Acid (Folic Acid) 1 mg PO DAILY ON LICENSE OF [facility] Guaifenesin (Mucinex) 600 mg PO BID PRN PRN Reason: cold symptoms Lorazepam (Ativan) 1 mg PO Q6H PRN PRN Reason: Anxiety Metoclopramide HCl (Reglan) 10 mg IVPUSH Q6H PRN PRN Reason: Nausea/Vomiting Miscellaneous Information (Remove Patch) 1 ea TRDERM DAILY ON LICENSE OF [facility] Mometasone Furoate (Asmanex 220 Mcg) 0 puff INH BIDRT ON LICENSE OF [facility] Last Admin: 06/27/17 07:04 Dose: Not Given Mometasone Furoate/Formoterol Fumar (Dulera 200-5 Mcg) 2 puff IH BID ON LICENSE OF [facility] Last Admin: 06/27/17 08:30 Dose: 2 puff Nicotine (Habitrol) 21 mg TRDERM DAILY ON LICENSE OF [facility] Non-Formulary Medication (Saliva Substitution Combo No.9 [Biotene]) 1 dose PO QID PRN PRN Reason: dry mouth Ondansetron HCl (Zofran Odt) 8 mg PO Q8H PRN PRN Reason: Nausea Simvastatin (Zocor) 20 mg PO DAILY ON LICENSE OF [facility] Sodium Chloride (Saline Flush) 10 ml FLUSH ASDIRECTED PRN PRN Reason: Keep Vein Open Last Admin: 06/26/17 15:22 Dose: 10 ml Temazepam (Restoril) 7.5 mg PO BEDTIME PRN PRN Reason: Insomnia Tiotropium Anderson (Spiriva Handihaler) 18 mcg INH DAILY ON LICENSE OF [facility] Last Admin: 06/27/17 08:29 Dose: 1 cap Discontinued Medications Sodium Chloride (Normal Saline) 1,000 mls @ 1,000 mls/hr IV .BOLUS ON LICENSE OF [facility] Last Admin: 06/26/17 17:41 Dose: 1,000 mls/hr Sodium Chloride (Normal Saline) 1,000 mls @ 150 mls/hr IV ASDIRECTED ON LICENSE OF [facility] Last Admin: 06/27/17 01:30 Dose: 150 mls/hr Sodium Chloride (Normal Saline) Confirm Administered Dose 1,000 mls @ as directed .ROUTE .STK-MED ONE Stop: 06/26/17 17:41 Last Admin: 06/26/17 17:42 Dose: Not Given Magnesium Sulfate 2 gm/ Premix 50 mls @ 25 mls/hr IV ONETIME ONE Stop: 06/26/17 22:34 Last Admin: 06/26/17 21:49 Dose: 25 mls/hr Ondansetron HCl (Zofran) 4 mg IVPUSH ONETIME ONE Stop: 06/26/17 14:52 Last Admin: 06/26/17 15:21 Dose: 4 mg - Exam Quality Assessment: Supplemental Oxygen, DVT Prophylaxis General: Alert, Oriented, Cooperative, No Acute Distress HEENT: Pupils Equal, Pupils Reactive, EOMI Neck: Trachea Midline Lungs: Normal Respiratory Effort, Decreased Breath Sounds Cardiovascular: Regular Rate, Regular Rhythm GI/Abdominal Exam: Normal Bowel Sounds, Soft, Non-Tender, No Organomegaly, No Distention (Female) Exam: Deferred Back Exam: Normal Inspection Extremities: Normal Inspection, Non-Tender, No Pedal Edema Skin: Warm Wound/Incisions: Healing Well Neurological: No New Focal Deficit Psy/Mental Status: Alert, Normal Affect, Normal Mood - Problem List Review Problem List Initiated/Reviewed/Updated: Yes - My Orders Last 24 Hours: My Active Orders 06/26/17 20:52 Antiembolic Devices [RC] BID MELISSA Hose [Antiembolic Hose] [OM.PC] Routine 06/26/17 22:00 Mometasone Furoate [Asmanex 220 MCG] 0 puff INH BIDRT 06/26/17 23:38 Code Status [Resuscitation Status] Routine 06/27/17 09:00 Enoxaparin [Lovenox] 40 mg SUBCUT DAILY Remove Patch 1 ea TRDERM DAILY 06/28/17 05:00 MAGNESIUM [CHEM] DAILY 06/28/17 09:00 CXR [Chest 2V] [CR] Routine 06/29/17 05:00 MAGNESIUM [CHEM] DAILY - Plan Plan:: Impression: AMS improved after hydration; can not exclude infectious process Dehydration--decreased appetite ARF--pre-renal-->improved Hx of lung CA actively smoking tobacco requires Nicotine substitute. Hx of COPD Doubt syncopal episode Chronic HTN Anxiety Plan: IVF Infectious work up= Mycoplasma pneumonia, start Doxycycline Droplet isolation Home meds Tobacco cessation education Daily Labs Consult PT/OT/CM (re: ) DVT/GI prophylaxis
[2017-06-27] MEDS: Folic Acid 1 MG Tab PO SCH (10:26)
[2017-06-27] MEDS: buPROPion 150 MG Tab.ER PO SCH (10:26)
[2017-06-27] MEDS: Cholecalciferol (Vitamin D3) 1,000 Unit Tab PO SCH (10:27)
[2017-06-27] MEDS: Nicotine 21 MG/24 Hr Patch TRDERM SCH (10:27)
[2017-06-27] MEDS: Enoxaparin 40 MG/0.4 ML Syringe SUBCUT SCH (10:30)
[2017-06-27] MEDS: Simvastatin 20 MG Tab PO SCH (10:30)
[2017-06-27] MEDS: Potassium Chloride 20 MEQ Tab.ER PO SCH ×2 (10:51→22:56)
[2017-06-27] MEDS: Doxycycline 100 MG in Sodium Chloride 0.9% 100 ML IV SCH ×2 (11:33→22:58)
[2017-06-27] MEDS: hydrALAZINE 20 MG/ML SDV IVPUSH PRN (16:23)
[2017-06-27] MEDS ORDERED: Doxazosin 2 MG Tab PO ONE (17:54)
[2017-06-27] MEDS: ADVAIR INH SCH (21:04)
[2017-06-27] MEDS: cloNIDine 0.1 MG Tab PO SCH (22:56)
[2017-06-28] MEDS: ADVAIR INH SCH (06:44)
[2017-06-28] MEDS: Megestrol Susp 40 MG/ML 10 ML UD Cup PO SCH (08:32)
[2017-06-28] MEDS: Cholecalciferol (Vitamin D3) 1,000 Unit Tab PO SCH (08:32)
[2017-06-28] MEDS: cloNIDine 0.1 MG Tab PO SCH ×3 (08:33→20:20)
[2017-06-28] MEDS: buPROPion 150 MG Tab.ER PO SCH (08:33)
[2017-06-28] MEDS: Folic Acid 1 MG Tab PO SCH (08:34)
[2017-06-28] MEDS: Enoxaparin 40 MG/0.4 ML Syringe SUBCUT SCH (08:34)
[2017-06-28] MEDS: Simvastatin 20 MG Tab PO SCH (08:34)
[2017-06-28] MEDS: Nicotine 21 MG/24 Hr Patch TRDERM SCH (08:35)
[2017-06-28] MEDS: Doxycycline 100 MG in Sodium Chloride 0.9% 100 ML IV SCH ×2 (08:37→20:20)
[2017-06-28] MEDS: Tiotropium Inhaler 18 MCG Inhalation Powder Cap Kit of 5 INH SCH (09:12)
--- NOTE | 2017-06-28 10:48 | PCM.PN ---
- General Info Date of Service: 06/28/17 Admission Dx/Problem (Free Text): Discussed dietary options for diet, and the importance of starting the day with breakfast. Has had elevated BP, appears to not be responsive to apresoline. Functional Status: Reports: Pain Controlled, Tolerating Diet, Ambulating, Urinating - Review of Systems General: Reports: No Symptoms HEENT: Reports: No Symptoms Pulmonary: Reports: No Symptoms Cardiovascular: Reports: No Symptoms Gastrointestinal: Reports: No Symptoms Genitourinary: Reports: No Symptoms Musculoskeletal: Reports: No Symptoms Skin: Reports: No Symptoms Neurological: Reports: No Symptoms Psychiatric: Reports: No Symptoms - Patient Data Vitals - Most Recent: Last Vital Signs Temp 36.9 C 06/28/17 08:25 Pulse 111 H 06/28/17 08:20 Resp 19 06/28/17 08:20 BP 158/80 H 06/28/17 08:33 Pulse Ox 98 06/28/17 09:12 Weight - Most Recent: 45.042 kg I&O - Last 24 Hours: Intake & Output 06/27/17 06/28/17 06/28/17 22:59 06:59 14:59 Intake Total 200 100 Output Total 900 1175 Balance -700 -1075 Lab Results Last 24 Hours: Laboratory Results - last 24 hr 06/28/17 06/28/17 06/28/17 Range/Units 06:32 06:32 06:32 WBC 5.32 (3.98-10.04) K/mm3 RBC 3.11 L (3.98-5.22) M/mm3 Hgb 10.1 L (11.2-15.7) gm/L Hct 30.7 L (34.1-44.9) % MCV 98.7 H (79.4-94.8) fl MCH 32.5 H (25.6-32.2) pg MCHC 32.9 (32.2-35.5) g/dl RDW Std Deviation 45.0 (36.4-46.3) fL Plt Count 198 (182-369) K/mm3 MPV 9.9 (9.4-12.3) fl Neut % (Auto) 72.2 H (34.0-71.1) % Lymph % (Auto) 10.9 L (19.3-51.7) % [place] % (Auto) 15.0 H (4.7-12.5) % Eos % (Auto) 0.4 L (0.7-5.8) Baso % (Auto) 0.2 (0.1-1.2) % Neut # (Auto) 3.84 (1.56-6.13) K/mm3 Lymph # (Auto) 0.58 L (1.18-3.74) K/mm3 [place] # (Auto) 0.80 H (0.24-0.36) K/mm3 Eos # (Auto) 0.02 L (0.04-0.36) K/mm3 Baso # (Auto) 0.01 (0.01-0.08) K/mm3 Sodium 137 (136-145) mEq/L Potassium 4.5 (3.5-5.1) mEq/L Chloride 107 (98-107) mEq/L Carbon Dioxide 20 L (21-32) mEq/L Anion Gap 14.5 (5-15) BUN 6 L (7-18) mg/dL Creatinine 0.6 (0.55-1.02) mg/dL Est Cr Clr Drug Dosing 63.35 mL/min Estimated GFR (MDRD) > 60 (>60) mL/min BUN/Creatinine Ratio 10.0 L (14-18) Glucose 95 (80-115) mg/dL Lactic Acid 0.8 (0.4-2.0) mmol/L Calcium 8.8 (8.5-10.1) mg/dL Magnesium 1.6 L (1.8-2.4) mg/dl C-Reactive Protein 9.8 H* (<1.0) mg/dL Triglycerides 106 (<150) mg/dL Cholesterol 171 (<200) mg/dL LDL Cholesterol Direct 122 H* (<100) mg/dL HDL Cholesterol 32.0 L (40-59) mg/dL Med Orders - Current: Current Medications Hydrocodone Bitart/Acetaminophen ([place] 325-5 Mg) 1 tab PO Q4H PRN PRN Reason: Pain Albuterol (Proventil Neb Soln) 2.5 mg NEB Q4HRRT PRN PRN Reason: Shortness of Breath Albuterol/Ipratropium (Duoneb 3.0-0.5 Mg/3 Ml) 3 ml NEB QID PRN PRN Reason: Shortness of Breath Benzonatate (Tessalon Perles) 200 mg PO TID PRN PRN Reason: Cough Bupropion HCl (Wellbutrin Xl) 300 mg PO DAILY [facility] Last Admin: 06/28/17 08:33 Dose: 300 mg Cholecalciferol (Vitamin D3) 5,000 units PO DAILY [facility] Last Admin: 06/28/17 08:32 Dose: 5,000 units Clonidine HCl (Catapres) 0.1 mg PO TID [facility] Last Admin: 06/28/17 08:33 Dose: 0.1 mg Enoxaparin Sodium (Lovenox) 40 mg SUBCUT DAILY [facility] Last Admin: 06/28/17 08:34 Dose: 40 mg Folic Acid (Folic Acid) 1 mg PO DAILY [facility] Last Admin: 06/28/17 08:34 Dose: 1 mg Guaifenesin (Mucinex) 600 mg PO BID PRN PRN Reason: cold symptoms Last Admin: 06/27/17 16:25 Dose: 600 mg Hydralazine HCl (Apresoline) 20 mg IVPUSH Q6H PRN PRN Reason: Hypertension Last Admin: 06/27/17 16:23 Dose: 20 mg Doxycycline Hyclate 100 mg/ (Sodium Chloride) 100 mls @ 100 mls/hr IV Q12HR [facility] Last Admin: 06/28/17 08:37 Dose: 100 mls/hr Lorazepam (Ativan) 1 mg PO Q6H PRN PRN Reason: Anxiety Megestrol Acetate (Megace 40 Mg/Ml Susp) 800 mg PO DAILY [facility] Last Admin: 06/28/17 08:32 Dose: 800 mg Metoclopramide HCl (Reglan) 10 mg IVPUSH Q6H PRN PRN Reason: Nausea/Vomiting Miscellaneous Information (Remove Patch) 1 ea TRDERM DAILY [facility] Last Admin: 06/28/17 08:37 Dose: 1 ea Nicotine (Habitrol) 21 mg TRDERM DAILY [facility] Last Admin: 06/28/17 08:35 Dose: 21 mg Advair 500-50Pt (Own) 0 each INH BIDRT [facility] Last Admin: 06/28/17 06:44 Dose: 1 each Ondansetron HCl (Zofran Odt) 8 mg PO Q8H PRN PRN Reason: Nausea Simvastatin (Zocor) 20 mg PO DAILY [facility] Last Admin: 06/28/17 08:34 Dose: 20 mg Sodium Chloride (Saline Flush) 10 ml FLUSH ASDIRECTED PRN PRN Reason: Keep Vein Open Last Admin: 06/26/17 15:22 Dose: 10 ml Temazepam (Restoril) 7.5 mg PO BEDTIME PRN PRN Reason: Insomnia Tiotropium [place] (Spiriva Handihaler) 18 mcg INH DAILY [facility] Last Admin: 06/28/17 09:12 Dose: 1 cap Discontinued Medications Doxazosin Mesylate (Cardura) 2 mg PO ONETIME ONE Stop: 06/27/17 17:55 Last Admin: 06/27/17 18:38 Dose: 2 mg Sodium Chloride (Normal Saline) 1,000 mls @ 1,000 mls/hr IV .BOLUS [facility] Last Admin: 06/26/17 17:41 Dose: 1,000 mls/hr Sodium Chloride (Normal Saline) 1,000 mls @ 150 mls/hr IV ASDIRECTED [facility] Last Admin: 06/27/17 01:30 Dose: 150 mls/hr Sodium Chloride (Normal Saline) Confirm Administered Dose 1,000 mls @ as directed .ROUTE .STK-MED ONE Stop: 06/26/17 17:41 Last Admin: 06/26/17 17:42 Dose: Not Given Magnesium Sulfate 2 gm/ Premix 50 mls @ 25 mls/hr IV ONETIME ONE Stop: 06/26/17 22:34 Last Admin: 06/26/17 21:49 Dose: 25 mls/hr Mometasone Furoate (Asmanex 220 Mcg) 0 puff INH BIDRT [facility] Last Admin: 06/27/17 07:04 Dose: Not Given Mometasone Furoate/Formoterol Fumar (Dulera 200-5 Mcg) 2 puff IH BID [facility] Last Admin: 06/27/17 08:30 Dose: 2 puff Non-Formulary Medication (Saliva Substitution Combo No.9 [Biotene]) 1 dose PO QID PRN PRN Reason: dry mouth Ondansetron HCl (Zofran) 4 mg IVPUSH ONETIME ONE Stop: 06/26/17 14:52 Last Admin: 06/26/17 15:21 Dose: 4 mg Potassium Chloride (Klor-Con M20) 40 meq PO BID [facility] Stop: 06/28/17 21:01 Last Admin: 06/27/17 22:56 Dose: 40 meq - Exam Quality Assessment: Supplemental Oxygen, DVT Prophylaxis General: Alert, Oriented, Cooperative, No Acute Distress HEENT: Pupils Equal, Pupils Reactive, EOMI Neck: Supple, Trachea Midline Lungs: Normal Respiratory Effort, Decreased Breath Sounds Cardiovascular: Regular Rate, Regular Rhythm GI/Abdominal Exam: Normal Bowel Sounds, Soft, Non-Tender, No Organomegaly, No Distention (Female) Exam: Deferred Back Exam: Normal Inspection Extremities: Normal Inspection, No Pedal Edema, Normal Capillary Refill Skin: Warm Neurological: No New Focal Deficit Psy/Mental Status: Alert, Normal Affect, Normal Mood - Problem List Review Problem List Initiated/Reviewed/Updated: Yes - My Orders Last 24 Hours: My Active Orders 06/27/17 10:00 Doxycycline [Vibramycin] 100 mg Sodium Chloride 0.9% [Normal Saline] 100 ml IV Q12HR 06/27/17 15:55 hydrALAZINE [Apresoline] 20 mg IVPUSH Q6H PRN 06/27/17 21:00 Non-Formulary Medication [NF Drug] 0 each INH BIDRT 06/27/17 22:00 cloNIDine [Catapres] 0.1 mg PO TID 06/27/17 Dinner Heart Healthy Diet [DIET] 06/28/17 09:00 CXR [Chest 2V] [CR] Routine Megestrol [Megace 40 MG/ML Susp] 800 mg PO DAILY 06/29/17 05:00 MAGNESIUM [CHEM] DAILY - Plan Plan:: Impression: AMS resolved Dehydration--decreased appetite; improving ARF--pre-renal-->improved Hx of lung CA actively smoking tobacco requires Nicotine substitute. Hx of COPD Doubt syncopal episode Chronic HTN Anxiety Plan: IVF Infectious work up= Mycoplasma pneumonia, start Doxycycline Droplet isolation Home meds Tobacco cessation education Daily Labs Consult PT/OT/CM (re: HH) DVT/GI prophylaxis DC 24-48 hours
[2017-06-28] MEDS: Potassium Chloride 20 MEQ Tab.ER PO SCH (11:24)
[2017-06-28] MEDS: hydrALAZINE 20 MG/ML SDV IVPUSH PRN (12:23)
[2017-06-28] MEDS: Formoterol/Mometasone 200-5 MCG 8.8 GM Inhaler IH SCH (21:08)
[2017-06-29] MEDS: LORazepam 1 MG Tab PO PRN ×3 (00:50→18:38)
[2017-06-29] MEDS: Formoterol/Mometasone 200-5 MCG 8.8 GM Inhaler IH SCH ×2 (06:47→21:37)
[2017-06-29] MEDS: Tiotropium Inhaler 18 MCG Inhalation Powder Cap Kit of 5 INH SCH (08:37)
--- NOTE | 2017-06-29 08:44 | PCM.DCSUM1 ---
Discharge Summary - Discharge Data Discharge Date: 06/29/17 (Admit Date:06/26/17) Discharge Disposition: Home, Self-Care 01 Condition: Good - Discharge Plan Home Medications: Home Meds Acetaminophen [Tylenol] 650 mg PO Q4H PRN 05/27/17 [History] Albuterol [Proair HFA] 2 puff INH Q4H PRN 05/27/17 [History] Benzonatate [Tessalon Perle] 200 mg PO TID PRN 05/27/17 [History] Fluticasone/Salmeterol [Advair 500-50] 1 puff INH BID 05/27/17 [History] Folic Acid 1 mg PO DAILY 05/27/17 [History] Hydrocodone/Acetaminophen [[place] 5-325] 1 tab PO Q4H PRN 05/27/17 [History] LORazepam [LORazepam] 1 tab PO Q6H PRN 05/27/17 [History] Megestrol [Megace 40 MG/ML Susp] 20 ml PO DAILY 05/27/17 [History] Saliva Substitution Combo No.9 [Biotene] 1 dose PO QID PRN 05/27/17 [History] Simvastatin [Zocor] 20 mg PO DAILY 05/27/17 [History] Tiotropium [Spiriva Handihaler] 2 puff INH DAILY 05/27/17 [History] buPROPion HCl [Wellbutrin Xl] 300 mg PO DAILY 05/27/17 [History] guaiFENesin [Mucinex] 600 mg PO BID PRN 05/27/17 [History] Forms: ED Department Discharge Referrals: Joey Church Jr, MD [Primary Care Provider] - - Patient Data Vitals - Most Recent: Last Vital Signs Temp 98.2 F 06/29/17 03:36 Pulse 95 06/29/17 03:36 Resp 20 06/29/17 03:36 BP 153/84 H 06/29/17 03:36 Pulse Ox 96 06/29/17 08:37 Weight - Most Recent: 96 lb 8 oz I&O - Last 24 hours: Intake & Output 06/28/17 06/29/17 06/29/17 22:59 06:59 14:59 Intake Total 900 900 Output Total 500 450 Balance 400 450 Lab Results - Last 24 hrs: Laboratory Results - last 24 hr 06/29/17 06/29/17 06/29/17 Range/Units 06:10 06:10 06:10 WBC 6.10 (3.98-10.04) K/mm3 RBC 3.05 L (3.98-5.22) M/mm3 Hgb 9.7 L (11.2-15.7) gm/L Hct 30.2 L (34.1-44.9) % MCV 99.0 H (79.4-94.8) fl MCH 31.8 (25.6-32.2) pg MCHC 32.1 L (32.2-35.5) g/dl RDW Std Deviation 46.0 (36.4-46.3) fL Plt Count 214 (182-369) K/mm3 MPV 10.5 (9.4-12.3) fl Neut % (Auto) 68.6 (34.0-71.1) % Lymph % (Auto) 15.6 L (19.3-51.7) % [place] % (Auto) 14.1 H (4.7-12.5) % Eos % (Auto) 0.5 L (0.7-5.8) Baso % (Auto) 0.2 (0.1-1.2) % Neut # (Auto) 4.19 (1.56-6.13) K/mm3 Lymph # (Auto) 0.95 L (1.18-3.74) K/mm3 [place] # (Auto) 0.86 H (0.24-0.36) K/mm3 Eos # (Auto) 0.03 L (0.04-0.36) K/mm3 Baso # (Auto) 0.01 (0.01-0.08) K/mm3 Sodium 139 (136-145) mEq/L Potassium 3.9 (3.5-5.1) mEq/L Chloride 107 (98-107) mEq/L Carbon Dioxide 19 L (21-32) mEq/L Anion Gap 16.9 H (5-15) BUN 8 (7-18) mg/dL Creatinine 0.7 (0.55-1.02) mg/dL Est Cr Clr Drug Dosing 51.67 mL/min Estimated GFR (MDRD) > 60 (>60) mL/min BUN/Creatinine Ratio 11.4 L (14-18) Glucose 83 (80-115) mg/dL Lactic Acid 0.7 (0.4-2.0) mmol/L Calcium 9.2 (8.5-10.1) mg/dL Magnesium 1.6 L (1.8-2.4) mg/dl C-Reactive Protein 6.1 H* (<1.0) mg/dL Med Orders - Current: Current Medications Hydrocodone Bitart/Acetaminophen ([place] 325-5 Mg) 1 tab PO Q4H PRN PRN Reason: Pain Albuterol (Proventil Neb Soln) 2.5 mg NEB Q4HRRT PRN PRN Reason: Shortness of Breath Albuterol/Ipratropium (Duoneb 3.0-0.5 Mg/3 Ml) 3 ml NEB QID PRN PRN Reason: Shortness of Breath Benzonatate (Tessalon Perles) 200 mg PO TID PRN PRN Reason: Cough Bupropion HCl (Wellbutrin Xl) 300 mg PO DAILY [facility] Last Admin: 06/28/17 08:33 Dose: 300 mg Cholecalciferol (Vitamin D3) 5,000 units PO DAILY [facility] Last Admin: 06/28/17 08:32 Dose: 5,000 units Clonidine HCl (Catapres) 0.1 mg PO TID [facility] Last Admin: 06/28/17 20:20 Dose: 0.1 mg Enoxaparin Sodium (Lovenox) 40 mg SUBCUT DAILY [facility] Last Admin: 06/28/17 08:34 Dose: 40 mg Folic Acid (Folic Acid) 1 mg PO DAILY [facility] Last Admin: 06/28/17 08:34 Dose: 1 mg Guaifenesin (Mucinex) 600 mg PO BID PRN PRN Reason: cold symptoms Last Admin: 06/27/17 16:25 Dose: 600 mg Hydralazine HCl (Apresoline) 20 mg IVPUSH Q6H PRN PRN Reason: Hypertension Last Admin: 06/28/17 12:23 Dose: 20 mg Doxycycline Hyclate 100 mg/ (Sodium Chloride) 100 mls @ 100 mls/hr IV Q12HR [facility] Last Admin: 06/28/17 20:20 Dose: 100 mls/hr Lorazepam (Ativan) 1 mg PO Q6H PRN PRN Reason: Anxiety Last Admin: 06/29/17 00:50 Dose: 1 mg Megestrol Acetate (Megace 40 Mg/Ml Susp) 800 mg PO DAILY [facility] Last Admin: 06/28/17 08:32 Dose: 800 mg Metoclopramide HCl (Reglan) 10 mg IVPUSH Q6H PRN PRN Reason: Nausea/Vomiting Miscellaneous Information (Remove Patch) 1 ea TRDERM DAILY [facility] Last Admin: 06/28/17 08:37 Dose: 1 ea Mometasone Furoate/Formoterol Fumar (Dulera 200-5 Mcg) 2 puff IH BIDRT [facility] Last Admin: 06/29/17 06:47 Dose: 2 puff Nicotine (Habitrol) 21 mg TRDERM DAILY [facility] Last Admin: 06/28/17 08:35 Dose: 21 mg Ondansetron HCl (Zofran Odt) 8 mg PO Q8H PRN PRN Reason: Nausea Simvastatin (Zocor) 20 mg PO DAILY [facility] Last Admin: 06/28/17 08:34 Dose: 20 mg Sodium Chloride (Saline Flush) 10 ml FLUSH ASDIRECTED PRN PRN Reason: Keep Vein Open Last Admin: 06/26/17 15:22 Dose: 10 ml Temazepam (Restoril) 7.5 mg PO BEDTIME PRN PRN Reason: Insomnia Tiotropium [place] (Spiriva Handihaler) 18 mcg INH DAILY [facility] Last Admin: 06/29/17 08:37 Dose: 1 cap Discontinued Medications Doxazosin Mesylate (Cardura) 2 mg PO ONETIME ONE Stop: 06/27/17 17:55 Last Admin: 06/27/17 18:38 Dose: 2 mg Sodium Chloride (Normal Saline) 1,000 mls @ 1,000 mls/hr IV .BOLUS [facility] Last Admin: 06/26/17 17:41 Dose: 1,000 mls/hr Sodium Chloride (Normal Saline) 1,000 mls @ 150 mls/hr IV ASDIRECTED [facility] Last Admin: 06/27/17 01:30 Dose: 150 mls/hr Sodium Chloride (Normal Saline) Confirm Administered Dose 1,000 mls @ as directed .ROUTE .STK-MED ONE Stop: 06/26/17 17:41 Last Admin: 06/26/17 17:42 Dose: Not Given Magnesium Sulfate 2 gm/ Premix 50 mls @ 25 mls/hr IV ONETIME ONE Stop: 06/26/17 22:34 Last Admin: 06/26/17 21:49 Dose: 25 mls/hr Mometasone Furoate (Asmanex 220 Mcg) 0 puff INH BIDRT [facility] Last Admin: 06/27/17 07:04 Dose: Not Given Mometasone Furoate/Formoterol Fumar (Dulera 200-5 Mcg) 2 puff IH BID [facility] Last Admin: 06/27/17 08:30 Dose: 2 puff Non-Formulary Medication (Saliva Substitution Combo No.9 [Biotene]) 1 dose PO QID PRN PRN Reason: dry mouth Advair 500-50Pt (Own) 0 each INH BIDRT [facility] Last Admin: 06/28/17 06:44 Dose: 1 each Ondansetron HCl (Zofran) 4 mg IVPUSH ONETIME ONE Stop: 06/26/17 14:52 Last Admin: 06/26/17 15:21 Dose: 4 mg Potassium Chloride (Klor-Con M20) 40 meq PO BID [facility] Stop: 06/28/17 21:01 Last Admin: 06/28/17 11:24 Dose: Not Given *Q Meaningful Use (DIS) - VTE *Q VTE Criteria *Q: - Stroke *Q Stroke Criteria *Q: - AMI *Q AMI Criteria *Q:
--- NOTE | 2017-06-29 09:15 | CR ---
Chest: Two views of the chest were obtained. Comparison: No prior chest x-ray. Heart size is normal. Tortuous thoracic aorta is seen. Right-sided infusion catheter is seen. Lung markings are diffusely increased. Mild asymmetric densities are noted within the left midlung and left lower lung as well as right midlung. Lungs are hyperinflated compatible with emphysematous change. Mild degenerative change is seen within the spine. Minimal scoliosis is present. Impression: 1. Emphysematous change. Other findings as noted above. Without old study uncertain if current findings represent chronic change, acute areas of pneumonia or even changes of aspiration/atelectasis. Diagnostic code #3 Agree with preliminary report issued by [facility] ([facility] preliminary report dictated on 06/28/17, 10:48 AM Central Time)
[2017-06-29] MEDS ORDERED: Magnesium Sulfate/Water 2 GM in Premix Bag 1 BAG IV ONE (09:35)
[2017-06-29] MEDS: Simvastatin 20 MG Tab PO SCH (09:38)
[2017-06-29] MEDS: cloNIDine 0.1 MG Tab PO SCH (09:39)
[2017-06-29] MEDS: Cholecalciferol (Vitamin D3) 1,000 Unit Tab PO SCH (09:39)
[2017-06-29] MEDS: Megestrol Susp 40 MG/ML 10 ML UD Cup PO SCH (09:39)
[2017-06-29] MEDS: buPROPion 150 MG Tab.ER PO SCH (09:40)
[2017-06-29] MEDS: Folic Acid 1 MG Tab PO SCH (09:40)
[2017-06-29] MEDS: Enoxaparin 40 MG/0.4 ML Syringe SUBCUT SCH (09:40)
[2017-06-29] MEDS: Nicotine 21 MG/24 Hr Patch TRDERM SCH (09:41)
[2017-06-29] MEDS: Doxycycline 100 MG Cap PO SCH ×2 (10:41→21:00)
[2017-06-29] MEDS: Doxycycline 100 MG in Sodium Chloride 0.9% 100 ML IV SCH (11:17)
--- NOTE | 2017-06-29 13:42 | PCM.PN ---
- General Info Date of Service: 06/29/17 Admission Dx/Problem (Free Text): Failure to thrive. Subjective Update: In to see Lyndsay. She is sitting in bed. PT did walk with RT to qualify for oxygen. Saturations remained good although she did complain of being increasingly short of breath. Her blood pressures been high here. We will discontinue clonidine and start Dyazide and Norvasc at night by mouth. She will start that today and we will see how things go tomorrow. She is currently off oxygen. She still complains of being weak and short of breath with exertion. She is eating well. Probable discharge tomorrow. Functional Status: Reports: Pain Controlled, Tolerating Diet, Ambulating, Urinating. Denies: New Symptoms - Review of Systems General: Reports: Weakness HEENT: Reports: No Symptoms Pulmonary: Reports: Shortness of Breath. Denies: Cough, Sputum, Wheezing Cardiovascular: Reports: Dyspnea on Exertion. Denies: Chest Pain, Palpitations Gastrointestinal: Reports: No Symptoms. Denies: Abdominal Pain, Constipation, Diarrhea, Nausea, Vomiting Genitourinary: Reports: No Symptoms Musculoskeletal: Reports: No Symptoms Skin: Reports: No Symptoms Neurological: Reports: No Symptoms Psychiatric: Reports: No Symptoms - Patient Data Vitals - Most Recent: Last Vital Signs Temp 98.4 F 06/29/17 09:30 Pulse 96 06/29/17 09:30 Resp 17 06/29/17 09:30 BP 150/82 H 06/29/17 09:39 Pulse Ox 98 06/29/17 09:30 Weight - Most Recent: 96 lb 8 oz I&O - Last 24 Hours: Intake & Output 06/28/17 06/29/17 06/29/17 22:59 06:59 14:59 Intake Total 900 900 0 Output Total 500 450 Balance 400 450 0 Lab Results Last 24 Hours: Laboratory Results - last 24 hr 06/29/17 06/29/17 06/29/17 Range/Units 06:10 06:10 06:10 WBC 6.10 (3.98-10.04) K/mm3 RBC 3.05 L (3.98-5.22) M/mm3 Hgb 9.7 L (11.2-15.7) gm/L Hct 30.2 L (34.1-44.9) % MCV 99.0 H (79.4-94.8) fl MCH 31.8 (25.6-32.2) pg MCHC 32.1 L (32.2-35.5) g/dl RDW Std Deviation 46.0 (36.4-46.3) fL Plt Count 214 (182-369) K/mm3 MPV 10.5 (9.4-12.3) fl Neut % (Auto) 68.6 (34.0-71.1) % Lymph % (Auto) 15.6 L (19.3-51.7) % Cottle % (Auto) 14.1 H (4.7-12.5) % Eos % (Auto) 0.5 L (0.7-5.8) Baso % (Auto) 0.2 (0.1-1.2) % Neut # (Auto) 4.19 (1.56-6.13) K/mm3 Lymph # (Auto) 0.95 L (1.18-3.74) K/mm3 Cottle # (Auto) 0.86 H (0.24-0.36) K/mm3 Eos # (Auto) 0.03 L (0.04-0.36) K/mm3 Baso # (Auto) 0.01 (0.01-0.08) K/mm3 Sodium 139 (136-145) mEq/L Potassium 3.9 (3.5-5.1) mEq/L Chloride 107 (98-107) mEq/L Carbon Dioxide 19 L (21-32) mEq/L Anion Gap 16.9 H (5-15) BUN 8 (7-18) mg/dL Creatinine 0.7 (0.55-1.02) mg/dL Est Cr Clr Drug Dosing 51.67 mL/min Estimated GFR (MDRD) > 60 (>60) mL/min BUN/Creatinine Ratio 11.4 L (14-18) Glucose 83 (80-115) mg/dL Lactic Acid 0.7 (0.4-2.0) mmol/L Calcium 9.2 (8.5-10.1) mg/dL Magnesium 1.6 L (1.8-2.4) mg/dl C-Reactive Protein 6.1 H* (<1.0) mg/dL Med Orders - Current: Current Medications Hydrocodone Bitart/Acetaminophen (Moran 325-5 Mg) 1 tab PO Q4H PRN PRN Reason: Pain Albuterol (Proventil Neb Soln) 2.5 mg NEB Q4HRRT PRN PRN Reason: Shortness of Breath Albuterol/Ipratropium (Duoneb 3.0-0.5 Mg/3 Ml) 3 ml NEB QID PRN PRN Reason: Shortness of Breath Amlodipine Besylate (Norvasc) 5 mg PO BEDTIME [facility] Benzonatate (Tessalon Perles) 200 mg PO TID PRN PRN Reason: Cough Bupropion HCl (Wellbutrin Xl) 300 mg PO DAILY [facility] Last Admin: 06/29/17 09:40 Dose: 300 mg Cholecalciferol (Vitamin D3) 5,000 units PO DAILY [facility] Last Admin: 06/29/17 09:39 Dose: 5,000 units Doxycycline Hyclate (Vibramycin) 100 mg PO Q12H [facility] Last Admin: 06/29/17 10:41 Dose: 100 mg Enoxaparin Sodium (Lovenox) 40 mg SUBCUT DAILY [facility] Last Admin: 06/29/17 09:40 Dose: 40 mg Folic Acid (Folic Acid) 1 mg PO DAILY [facility] Last Admin: 06/29/17 09:40 Dose: 1 mg Guaifenesin (Mucinex) 600 mg PO BID PRN PRN Reason: cold symptoms Last Admin: 06/27/17 16:25 Dose: 600 mg Hydralazine HCl (Apresoline) 20 mg IVPUSH Q6H PRN PRN Reason: Hypertension Last Admin: 06/28/17 12:23 Dose: 20 mg Lorazepam (Ativan) 1 mg PO Q6H PRN PRN Reason: Anxiety Last Admin: 06/29/17 09:43 Dose: 1 mg Megestrol Acetate (Megace 40 Mg/Ml Susp) 800 mg PO DAILY [facility] Last Admin: 06/29/17 09:39 Dose: 800 mg Metoclopramide HCl (Reglan) 10 mg IVPUSH Q6H PRN PRN Reason: Nausea/Vomiting Miscellaneous Information (Remove Patch) 1 ea TRDERM DAILY [facility] Last Admin: 06/29/17 09:41 Dose: 1 ea Mometasone Furoate/Formoterol Fumar (Dulera 200-5 Mcg) 2 puff IH BIDRT [facility] Last Admin: 06/29/17 06:47 Dose: 2 puff Nicotine (Habitrol) 21 mg TRDERM DAILY [facility] Last Admin: 06/29/17 09:41 Dose: 21 mg Ondansetron HCl (Zofran Odt) 8 mg PO Q8H PRN PRN Reason: Nausea Simvastatin (Zocor) 20 mg PO DAILY [facility] Last Admin: 06/29/17 09:38 Dose: 20 mg Sodium Chloride (Saline Flush) 10 ml FLUSH ASDIRECTED PRN PRN Reason: Keep Vein Open Last Admin: 06/26/17 15:22 Dose: 10 ml Temazepam (Restoril) 7.5 mg PO BEDTIME PRN PRN Reason: Insomnia Tiotropium Faxon (Spiriva Handihaler) 18 mcg INH DAILY [facility] Last Admin: 06/29/17 08:37 Dose: 1 cap Triamterene/HCTZ (Dyazide 25-37.5 Mg) 1 each PO DAILY [facility] Discontinued Medications Clonidine HCl (Catapres) 0.1 mg PO TID [facility] Last Admin: 06/29/17 09:39 Dose: 0.1 mg Doxazosin Mesylate (Cardura) 2 mg PO ONETIME ONE Stop: 06/27/17 17:55 Last Admin: 06/27/17 18:38 Dose: 2 mg Sodium Chloride (Normal Saline) 1,000 mls @ 1,000 mls/hr IV .BOLUS [facility] Last Admin: 06/26/17 17:41 Dose: 1,000 mls/hr Sodium Chloride (Normal Saline) 1,000 mls @ 150 mls/hr IV ASDIRECTED [facility] Last Admin: 06/27/17 01:30 Dose: 150 mls/hr Sodium Chloride (Normal Saline) Confirm Administered Dose 1,000 mls @ as directed .ROUTE .STK-MED ONE Stop: 06/26/17 17:41 Last Admin: 06/26/17 17:42 Dose: Not Given Magnesium Sulfate 2 gm/ Premix 50 mls @ 25 mls/hr IV ONETIME ONE Stop: 06/26/17 22:34 Last Admin: 06/26/17 21:49 Dose: 25 mls/hr Doxycycline Hyclate 100 mg/ (Sodium Chloride) 100 mls @ 100 mls/hr IV Q12HR [facility] Last Admin: 06/29/17 11:17 Dose: Not Given Magnesium Sulfate 2 gm/ Premix 50 mls @ 25 mls/hr IV ONETIME ONE Stop: 06/29/17 11:34 Last Admin: 06/29/17 10:41 Dose: 25 mls/hr Mometasone Furoate (Asmanex 220 Mcg) 0 puff INH BIDRT [facility] Last Admin: 06/27/17 07:04 Dose: Not Given Mometasone Furoate/Formoterol Fumar (Dulera 200-5 Mcg) 2 puff IH BID [facility] Last Admin: 06/27/17 08:30 Dose: 2 puff Non-Formulary Medication (Saliva Substitution Combo No.9 [Biotene]) 1 dose PO QID PRN PRN Reason: dry mouth Advair 500-50Pt (Own) 0 each INH BIDRT [facility] Last Admin: 06/28/17 06:44 Dose: 1 each Ondansetron HCl (Zofran) 4 mg IVPUSH ONETIME ONE Stop: 06/26/17 14:52 Last Admin: 06/26/17 15:21 Dose: 4 mg Potassium Chloride (Klor-Con M20) 40 meq PO BID [facility] Stop: 06/28/17 21:01 Last Admin: 06/28/17 11:24 Dose: Not Given - Exam Quality Assessment: DVT Prophylaxis General: Alert, Oriented, Cooperative, No Acute Distress HEENT: Pupils Equal, Pupils Reactive, EOMI, Mucous Membr. Moist/[place] Neck: Supple, Trachea Midline, No JVD Lungs: Clear to Auscultation, Normal Respiratory Effort Cardiovascular: Regular Rate, Regular Rhythm GI/Abdominal Exam: Normal Bowel Sounds, Soft, Non-Tender, No Organomegaly, No Distention, No Abnormal Bruit, No Mass, Pelvis Stable (Female) Exam: Deferred Extremities: Normal Inspection, Normal Range of Motion, Non-Tender, No Pedal Edema, Normal Capillary Refill Peripheral Pulses: 1+: Posterior Tibial (L), Posterior Tibial (R), Dorsalis Pedis (L), Dorsalis Pedis (R), 2+: Radial (L), Radial (R) Skin: Warm, Dry, Intact Neurological: No New Focal Deficit Psy/Mental Status: Alert, Normal Affect, Normal Mood - Problem List & Annotations (1) Dehydration SNOMED Code(s): 79350875 Code(s): E86.0 - DEHYDRATION Status: Acute Current Visit: Yes (2) Failure to thrive in adult SNOMED Code(s): 197232436 Code(s): R62.7 - ADULT FAILURE TO THRIVE Status: Acute Current Visit: Yes (3) Lung cancer SNOMED Code(s): 075077549 Code(s): C34.90 - MALIGNANT NEOPLASM OF UNSP PART OF UNSP BRONCHUS OR LUNG Status: Acute Current Visit: Yes Qualifiers: Laterality: unspecified laterality Lung location: unspecified part of lung Qualified Code(s): C34.90 - Malignant neoplasm of unspecified part of unspecified bronchus or lung (4) Hypertension SNOMED Code(s): 04945446 Code(s): I10 - ESSENTIAL (PRIMARY) HYPERTENSION Status: Acute Priority: High Current Visit: Yes Qualifiers: Hypertension type: unspecified Qualified Code(s): I10 - Essential (primary ) hypertension (5) Hypomagnesemia SNOMED Code(s): 540969397 Code(s): E83.42 - HYPOMAGNESEMIA Status: Acute Priority: High Current Visit: Yes - Problem List Review Problem List Initiated/Reviewed/Updated: Yes - My Orders Last 24 Hours: My Active Orders 06/29/17 10:00 Doxycycline [Vibramycin] 100 mg PO Q12H 06/29/17 21:00 amLODIPine [Norvasc] 5 mg PO BEDTIME 06/30/17 09:00 HCTZ/Triamterene [Dyazide 25-37.5 MG] 1 each PO DAILY - Plan Plan:: Impression: AMS- resolved Dehydration--decreased appetite; improving ARF--pre-renal-->improved Hx of lung CA actively smoking tobacco requires Nicotine substitute. Hx of COPD Doubt syncopal episode Hypertension; unresponsive to hydralazine, stop clonidine -> start Dyazide and Norvasc Chronic HTN Anxiety Plan: IVF Infectious work up= Mycoplasma pneumonia, start Doxycycline -> switch to PO Droplet isolation Home meds Tobacco cessation education Daily Labs Consult PT/OT/CM (re: HH) DVT/GI prophylaxis DC tomorrow - home with 24/7 cares. LOS >96 hrs due to difficulty obtaining BP control; SNF vs Home with 24/7 cares
[2017-06-29] MEDS ORDERED: amLODIPine 5 MG Tab PO SCH (21:00)
[2017-06-30] MEDS: Formoterol/Mometasone 200-5 MCG 8.8 GM Inhaler IH SCH ×2 (05:29→07:44)
--- NOTE | 2017-06-30 06:41 | PCM.DCSUM1 ---
Discharge Summary - Hospital Course HPI Initial Comments: 72 year old female who actively smokes tobacco presents with generalized weakness and confusion. The patient has a history of lung CA and has been getting CTX. She fell roughly 2 weeks ago and had a CT of the head that was unremarkable. The patient was seen by her PCP who diagnosed her with a concussion. She has been forgetful and confused reportedly since hitting her head after missing a step on her deck. The patient denies F/C, N/V but admits to decreased oral intake as well as a headache. - Discharge Data Discharge Date: 06/30/17 (Admit date: 06/26/17) Discharge Disposition: Home, W Home Health Agency 06 Condition: Good - Discharge Diagnosis/Problem(s) (1) Dehydration SNOMED Code(s): 09902529 ICD Code: E86.0 - DEHYDRATION Status: Acute Current Visit: Yes (2) Failure to thrive in adult SNOMED Code(s): 861252045 ICD Code: R62.7 - ADULT FAILURE TO THRIVE Status: Acute Current Visit: Yes (3) Lung cancer SNOMED Code(s): 268552083 ICD Code: C34.90 - MALIGNANT NEOPLASM OF UNSP PART OF UNSP BRONCHUS OR LUNG Status: Acute Current Visit: Yes Qualifiers: Laterality: unspecified laterality Lung location: unspecified part of lung Qualified Code(s): C34.90 - Malignant neoplasm of unspecified part of unspecified bronchus or lung (4) Hypertension SNOMED Code(s): 34613909 ICD Code: I10 - ESSENTIAL (PRIMARY) HYPERTENSION Status: Acute Priority: High Current Visit: Yes Qualifiers: Hypertension type: unspecified Qualified Code(s): I10 - Essential (primary ) hypertension (5) Hypomagnesemia SNOMED Code(s): 816021305 ICD Code: E83.42 - HYPOMAGNESEMIA Status: Resolved Priority: High Current Visit: Yes - Patient Summary/Data Consults: Consultations 06/29/17 10:26 Consult to Occupational Therapy [OT Evaluation and Treatment] [CONS] Routine Consult to Physical Therapy [PT Evaluation and Treatment] [CONS] Routine Labs Pending at D/C: none Recommended Follow-up Testing/Procedures: Follow-up with PCP in 7-10 days. Follow-up with oncologist as directed prior. Hospital Course: Impression: AMS- resolved Dehydration--decreased appetite; improving ARF--pre-renal-->improved Hx of lung CA actively smoking tobacco requires Nicotine substitute. Hx of COPD Doubt syncopal episode Hypertension; unresponsive to hydralazine, stop clonidine -> start Dyazide and Norvasc Chronic HTN Anxiety Plan: IVF Infectious work up= Mycoplasma pneumonia, start Doxycycline -> switch to PO Droplet isolation Home meds Tobacco cessation education Daily Labs Consult PT/OT/CM (re: ) DVT/GI prophylaxis Lyndsay responded well to treatment. Her shortness of breath improved although she did still have some dyspnea with exertion. PT/OT work with her and suggested SNF rehabilitation stay versus home with 24/7 care. Family discussed and decided they would be capable of taking care of her 24/7. They were told that SNF placement is always an option should he decide they are unable to care for her. RT worked with her. She did have fairly significant hypertension during her stay. She was started on Dyazide in the morning and Norvasc for bedtime. She should follow-up with her primary care provider as dosages may need to be adjusted. She'll be discharged home today on course of doxycycline. She was instructed on the importance of eating properly. She has been a smoker and was on the patch while here. She has reports that she has been attempting to quit utilizing patches. She has several at home. We discussed the importance of stopping smoking with her condition. I offered to send a prescription for more patches, however she says that she has plenty at home. We discussed practical methods to stop smoking including the gum and patches. We discussed finding people who she can call when she has the urge to smoke. She was given the number for the [place] quit line. We also discussed how her PCP is an excellent resource to stop smoking. Her home medications were resumed. She does have an albuterol inhaler which she can utilize. She is to see her PCP in 7-10 days. She should follow-up with her oncologist as planned. I met with Lyndsay [id number] discussing her plan of care and diagnosis. At this time [place] [facility] and has difficulty getting to medical facilities. She does get extremely short of breath with exertion, which makes trips difficult. She would benefit from a home safety evaluation, as well as home health, PT/OT, and OR DIRECTOR services. Her PCP, Manjula Terrell, at [facility] can monitor her progress. She will be discharged home today with 17/11 care provided by family - Patient Instructions Diet: Heart Healthy Diet Activity: As Tolerated Notify Provider of: Fever, Increased Pain, Nausea and/or Vomiting (increasing shortness of breath or chest pain ) - Discharge Plan Prescriptions/Med Rec: Albuterol [IMW: Ventolin HFA] 1 puff INH .TWICE DAILY PRN #18 gm PRN Reason: wheezing/shortness of breath amLODIPine [Norvasc] 5 mg PO BEDTIME #20 tablet Doxycycline Calcium [IMW: Doxycycline] 100 mg PO Q12H #11 capsule HCTZ/Triamterene [Dyazide 25-37.5 MG] 1 each PO DAILY #20 cap Home Medications: Home Meds Acetaminophen [Tylenol] 650 mg PO Q4H PRN 05/27/17 [History] Albuterol [Proair HFA] 2 puff INH Q4H PRN 05/27/17 [History] Benzonatate [Tessalon Perle] 200 mg PO TID PRN 05/27/17 [History] Fluticasone/Salmeterol [Advair 500-50] 1 puff INH BID 05/27/17 [History] Folic Acid 1 mg PO DAILY 05/27/17 [History] Hydrocodone/Acetaminophen [[place] 5-325] 1 tab PO Q4H PRN 05/27/17 [History] LORazepam 1 tab PO Q6H PRN 05/27/17 [History] Megestrol [Megace 40 MG/ML Susp] 20 ml PO DAILY 05/27/17 [History] Saliva Substitution Combo No.9 [Biotene] 1 dose PO QID PRN 05/27/17 [History] Simvastatin [Zocor] 20 mg PO DAILY 05/27/17 [History] Tiotropium [Spiriva Handihaler] 2 puff INH DAILY 05/27/17 [History] buPROPion HCl [Wellbutrin Xl] 300 mg PO DAILY 05/27/17 [History] guaiFENesin [Mucinex] 600 mg PO BID PRN 05/27/17 [History] Albuterol [IMW: Ventolin HFA] 1 puff INH .TWICE DAILY PRN #18 gm 06/30/17 [Rx] Doxycycline Calcium [IMW: Doxycycline] 100 mg PO Q12H #11 capsule 06/30/17 [Rx] HCTZ/Triamterene [Dyazide 25-37.5 MG] 1 each PO DAILY #20 cap 06/30/17 [Rx] amLODIPine [Norvasc] 5 mg PO BEDTIME #20 tablet 06/30/17 [Rx] Patient Handouts: Steps to Quit Smoking, [id number], Community-Acquired Pneumonia, Adult, [id number] Forms: ED Department Discharge Referrals: Mili Terrell NP [Ordering Only Provider] - 07/07/17 10:45 am (Please follow-up with your primary care doctor, Dr. Terrell, on ThursdayJuly 07 at 1045am. ) - Discharge Summary/Plan Comment DC Time >30 min.: Yes (45 mins) - General Info Date of Service: 06/30/17 Admission Dx/Problem (Free Text: Failure to thrive. Functional Status: Reports: Pain Controlled, Tolerating Diet, Ambulating, Urinating, Incentive Spirometry. Denies: New Symptoms - Review of Systems General: Reports: Weakness (improved ), Fatigue (improved ) HEENT: Reports: No Symptoms Pulmonary: Reports: Shortness of Breath, Cough, Wheezing Cardiovascular: Reports: Dyspnea on Exertion. Denies: Chest Pain, Palpitations Gastrointestinal: Reports: No Symptoms. Denies: Abdominal Pain, Constipation, Diarrhea, Nausea, Vomiting Genitourinary: Reports: No Symptoms Musculoskeletal: Reports: No Symptoms Skin: Reports: No Symptoms Neurological: Reports: No Symptoms Psychiatric: Reports: No Symptoms - Patient Data Vitals - Most Recent: Last Vital Signs Temp 97.7 F 06/30/17 00:20 Pulse 92 06/30/17 00:20 Resp 17 06/30/17 00:20 BP 153/72 H 06/30/17 00:20 Pulse Ox 95 06/30/17 00:20 Weight - Most Recent: 96 lb 8 oz I&O - Last 24 hours: Intake & Output 06/29/17 06/29/17 06/30/17 14:59 22:59 06:59 Intake Total 0 850 Output Total 750 Balance 0 100 Lab Results - Last 24 hrs: Laboratory Results - last 24 hr 06/29/17 06/29/17 06/29/17 Range/Units 06:10 06:10 06:10 WBC 6.10 (3.98-10.04) K/mm3 RBC 3.05 L (3.98-5.22) M/mm3 Hgb 9.7 L (11.2-15.7) gm/L Hct 30.2 L (34.1-44.9) % MCV 99.0 H (79.4-94.8) fl MCH 31.8 (25.6-32.2) pg MCHC 32.1 L (32.2-35.5) g/dl RDW Std Deviation 46.0 (36.4-46.3) fL Plt Count 214 (182-369) K/mm3 MPV 10.5 (9.4-12.3) fl Neut % (Auto) 68.6 (34.0-71.1) % Lymph % (Auto) 15.6 L (19.3-51.7) % [place] % (Auto) 14.1 H (4.7-12.5) % Eos % (Auto) 0.5 L (0.7-5.8) Baso % (Auto) 0.2 (0.1-1.2) % Neut # (Auto) 4.19 (1.56-6.13) K/mm3 Lymph # (Auto) 0.95 L (1.18-3.74) K/mm3 [place] # (Auto) 0.86 H (0.24-0.36) K/mm3 Eos # (Auto) 0.03 L (0.04-0.36) K/mm3 Baso # (Auto) 0.01 (0.01-0.08) K/mm3 Sodium 139 (136-145) mEq/L Potassium 3.9 (3.5-5.1) mEq/L Chloride 107 (98-107) mEq/L Carbon Dioxide 19 L (21-32) mEq/L Anion Gap 16.9 H (5-15) BUN 8 (7-18) mg/dL Creatinine 0.7 (0.55-1.02) mg/dL Est Cr Clr Drug Dosing 51.67 mL/min Estimated GFR (MDRD) > 60 (>60) mL/min BUN/Creatinine Ratio 11.4 L (14-18) Glucose 83 (80-115) mg/dL Lactic Acid 0.7 (0.4-2.0) mmol/L Calcium 9.2 (8.5-10.1) mg/dL Magnesium 1.6 L (1.8-2.4) mg/dl C-Reactive Protein 6.1 H* (<1.0) mg/dL Med Orders - Current: Current Medications Hydrocodone Bitart/Acetaminophen ([place] 325-5 Mg) 1 tab PO Q4H PRN PRN Reason: Pain Albuterol (Proventil Neb Soln) 2.5 mg NEB Q4HRRT PRN PRN Reason: Shortness of Breath Albuterol/Ipratropium (Duoneb 3.0-0.5 Mg/3 Ml) 3 ml NEB QID PRN PRN Reason: Shortness of Breath Amlodipine Besylate (Norvasc) 5 mg PO BEDTIME [facility] Last Admin: 06/29/17 21:00 Dose: 5 mg Benzonatate (Tessalon Perles) 200 mg PO TID PRN PRN Reason: Cough Bupropion HCl (Wellbutrin Xl) 300 mg PO DAILY [facility] Last Admin: 06/29/17 09:40 Dose: 300 mg Cholecalciferol (Vitamin D3) 5,000 units PO DAILY [facility] Last Admin: 06/29/17 09:39 Dose: 5,000 units Doxycycline Hyclate (Vibramycin) 100 mg PO Q12H [facility] Last Admin: 06/29/17 21:00 Dose: 100 mg Enoxaparin Sodium (Lovenox) 40 mg SUBCUT DAILY [facility] Last Admin: 06/29/17 09:40 Dose: 40 mg Folic Acid (Folic Acid) 1 mg PO DAILY [facility] Last Admin: 06/29/17 09:40 Dose: 1 mg Guaifenesin (Mucinex) 600 mg PO BID PRN PRN Reason: cold symptoms Last Admin: 06/27/17 16:25 Dose: 600 mg Hydralazine HCl (Apresoline) 20 mg IVPUSH Q6H PRN PRN Reason: Hypertension Last Admin: 06/28/17 12:23 Dose: 20 mg Lorazepam (Ativan) 1 mg PO Q6H PRN PRN Reason: Anxiety Last Admin: 06/29/17 18:38 Dose: 1 mg Megestrol Acetate (Megace 40 Mg/Ml Susp) 800 mg PO DAILY [facility] Last Admin: 03/05/18 09:39 Dose: 800 mg Metoclopramide HCl (Reglan) 10 mg IVPUSH Q6H PRN PRN Reason: Nausea/Vomiting Miscellaneous Information (Remove Patch) 1 ea TRDERM DAILY [facility] Last Admin: 06/29/17 09:41 Dose: 1 ea Mometasone Furoate/Formoterol Fumar (Dulera 200-5 Mcg) 2 puff IH BIDRT [facility] Last Admin: 06/30/17 05:29 Dose: Not Given Nicotine (Habitrol) 21 mg TRDERM DAILY [facility] Last Admin: 06/29/17 09:41 Dose: 21 mg Ondansetron HCl (Zofran Odt) 8 mg PO Q8H PRN PRN Reason: Nausea Simvastatin (Zocor) 20 mg PO DAILY [facility] Last Admin: 06/29/17 09:38 Dose: 20 mg Sodium Chloride (Saline Flush) 10 ml FLUSH ASDIRECTED PRN PRN Reason: Keep Vein Open Last Admin: 06/26/17 15:22 Dose: 10 ml Temazepam (Restoril) 7.5 mg PO BEDTIME PRN PRN Reason: Insomnia Tiotropium [place] (Spiriva Handihaler) 18 mcg INH DAILY [facility] Last Admin: 06/29/17 08:37 Dose: 1 cap Triamterene/HCTZ (Dyazide 25-37.5 Mg) 1 each PO DAILY [facility] Discontinued Medications Clonidine HCl (Catapres) 0.1 mg PO TID [facility] Last Admin: 06/29/17 09:39 Dose: 0.1 mg Doxazosin Mesylate (Cardura) 2 mg PO ONETIME ONE Stop: 06/27/17 17:55 Last Admin: 06/27/17 18:38 Dose: 2 mg Sodium Chloride (Normal Saline) 1,000 mls @ 1,000 mls/hr IV .BOLUS [facility] Last Admin: 06/26/17 17:41 Dose: 1,000 mls/hr Sodium Chloride (Normal Saline) 1,000 mls @ 150 mls/hr IV ASDIRECTED [facility] Last Admin: 06/27/17 01:30 Dose: 150 mls/hr Sodium Chloride (Normal Saline) Confirm Administered Dose 1,000 mls @ as directed .ROUTE .STK-MED ONE Stop: 06/26/17 17:41 Last Admin: 06/26/17 17:42 Dose: Not Given Magnesium Sulfate 2 gm/ Premix 50 mls @ 25 mls/hr IV ONETIME ONE Stop: 06/26/17 22:34 Last Admin: 06/26/17 21:49 Dose: 25 mls/hr Doxycycline Hyclate 100 mg/ (Sodium Chloride) 100 mls @ 100 mls/hr IV Q12HR [facility] Last Admin: 06/29/17 11:17 Dose: Not Given Magnesium Sulfate 2 gm/ Premix 50 mls @ 25 mls/hr IV ONETIME ONE Stop: 06/29/17 11:34 Last Admin: 06/29/17 10:41 Dose: 25 mls/hr Mometasone Furoate (Asmanex 220 Mcg) 0 puff INH BIDRT [facility] Last Admin: 06/27/17 07:04 Dose: Not Given Mometasone Furoate/Formoterol Fumar (Dulera 200-5 Mcg) 2 puff IH BID [facility] Last Admin: 06/27/17 08:30 Dose: 2 puff Non-Formulary Medication (Saliva Substitution Combo No.9 [Biotene]) 1 dose PO QID PRN PRN Reason: dry mouth Advair 500-50Pt (Own) 0 each INH BIDRT [facility] Last Admin: 06/28/17 06:44 Dose: 1 each Ondansetron HCl (Zofran) 4 mg IVPUSH ONETIME ONE Stop: 06/26/17 14:52 Last Admin: 06/26/17 15:21 Dose: 4 mg Potassium Chloride (Klor-Con M20) 40 meq PO BID [facility] Stop: 06/28/17 21:01 Last Admin: 06/28/17 11:24 Dose: Not Given - Exam Quality Assessment: Reports: DVT Prophylaxis General: Reports: Alert, Oriented, Cooperative, No Acute Distress HEENT: Reports: Pupils Equal, Pupils Reactive, EOMI, Mucous Membr. Moist/[place] Neck: Reports: Supple, Trachea Midline, No JVD, No Thyromegaly Lungs: Reports: Decreased Breath Sounds Cardiovascular: Reports: Regular Rate, Regular Rhythm GI/Abdominal Exam: Normal Bowel Sounds, Soft, Non-Tender, No Organomegaly, No Distention, No Abnormal Bruit, No Mass, Pelvis Stable (Female) Exam: Deferred Rectal (Female) Exam: Deferred Back Exam: Reports: Normal Inspection, Full Range of Motion Extremities: Normal Inspection, Normal Range of Motion, Non-Tender, No Pedal Edema, Normal Capillary Refill Skin: Reports: Warm, Dry, Intact Neurological: Reports: No New Focal Deficit Psy/Mental Status: Reports: Alert, Normal Affect, Normal Mood *Q Meaningful Use (DIS) - VTE *Q VTE Criteria *Q: - Stroke *Q Stroke Criteria *Q: - AMI *Q AMI Criteria *Q:
[2017-06-30] MEDS: hydrALAZINE 20 MG/ML SDV IVPUSH PRN (07:01)
[2017-06-30] MEDS: Tiotropium Inhaler 18 MCG Inhalation Powder Cap Kit of 5 INH SCH ×2 (07:45→07:59)
[2017-06-30] MEDS ORDERED: Hydrochlorothiazide/Triamterene 25-37.5 MG Cap PO SCH (09:00)
[2017-06-30] MEDS: Nicotine 21 MG/24 Hr Patch TRDERM SCH (09:17)
[2017-06-30] MEDS: LORazepam 1 MG Tab PO PRN (09:18)
[2017-06-30] MEDS: Enoxaparin 40 MG/0.4 ML Syringe SUBCUT SCH (09:18)
[2017-06-30] MEDS: buPROPion 150 MG Tab.ER PO SCH (09:18)
[2017-06-30] MEDS: Cholecalciferol (Vitamin D3) 1,000 Unit Tab PO SCH (09:18)
[2017-06-30] MEDS: Megestrol Susp 40 MG/ML 10 ML UD Cup PO SCH (09:18)
[2017-06-30] MEDS: Simvastatin 20 MG Tab PO SCH (09:19)
[2017-06-30] MEDS: Folic Acid 1 MG Tab PO SCH (09:19)
[2017-06-30] MEDS: Doxycycline 100 MG Cap PO SCH (10:59)
== END 2017-06-30 12:44 | disposition home health service (06) | DRG 947 ==
LOC: JD.ED 13:54 → UNDOADMIN 19:30 → JD.MS 19:30
PROVIDERS: ADMIT Internal Medicine Cardiovascular Disease; ATTEND Internal Medicine Cardiovascular Disease
DX: R41.0 Disorientation, unspecified (principal); S06.0X0S Concussion without loss of consciousness, sequela; W18.30XS Fall on same level, unspecified, sequela; R41.82 Altered mental status, unspecified; J15.7 Pneumonia due to Mycoplasma pneumoniae; C34.90 Malignant neoplasm of unspecified part of unspecified bronchus or lung; N17.9 Acute kidney failure, unspecified; C34.92 Malignant neoplasm of unspecified part of left bronchus or lung; C34.91 Malignant neoplasm of unspecified part of right bronchus or lung; E86.0 Dehydration; F17.200 Nicotine dependence, unspecified, uncomplicated; I10 Essential (primary) hypertension; F41.9 Anxiety disorder, unspecified; J44.9 Chronic obstructive pulmonary disease, unspecified; R62.7 Adult failure to thrive; E83.42 Hypomagnesemia; R06.02 Shortness of breath; M19.90 Unspecified osteoarthritis, unspecified site; K21.9 Gastro-esophageal reflux disease without esophagitis; Z85.3 Personal history of malignant neoplasm of breast; H54.7 Unspecified visual loss; Z88.8 Allergy status to other drugs, medicaments and biological substances; Z79.899 Other long term (current) drug therapy
CPT/HCPCS: 36415; 70450; 80053; 83735; 85025; 93005; 96361; 96374; 99285; J2405; J7040 ×3; J7050; 71046; 71046-26; 80048; 80061; 81001; 83605; 84484; 86140; 86738; 87804; 87899; 94640; 94664; 96523; 97116-GP; 97162-GP; 97166-GO; A9270; A9270-GY; J0360; J1642; J1650; J3475; J7030

== ENCOUNTER 2017-11-03 17:39 | Emergency (ER) | payer MEDICARE, BC ==
--- NOTE | 2017-11-03 18:19 | CR ---
Chest: 2 views of the chest were obtained. Comparison: Prior chest x-ray of 06/28/17. Focal parenchymal masslike density is seen within the left midline overlying the hilum on the lateral view presumably due to pneumonia. Bilateral pleural effusions are seen. Pulmonary vessels are diffusely congested with early alveolar edema. Right-sided infusion catheter seen. Heart is slightly enlarged. Impression: 1. Findings suspicious for pneumonia as well as CHF and early edema. Follow-up chest x-ray to make sure masslike density resolves after clinical therapy is complete. Diagnostic code #5
[2017-11-03] MEDS ORDERED: Sodium Chloride 0.9% 1,000 ML IV ONE (18:30)
[2017-11-03] MEDS ORDERED: LORazepam 2 MG/ML SDV IVPUSH ONE (18:31)
[2017-11-03] MEDS ORDERED: Albuterol/Ipratropium 3.0-0.5 MG/3 ML Neb Soln NEB ONE (18:32)
--- NOTE | 2017-11-03 18:34 | EDM.PDOC ---
ED HPI GENERAL MEDICAL PROBLEM - General Chief Complaint: Respiratory Problem Stated Complaint: [facility] Time Seen by Provider: 11/03/17 18:10 Source of Information: Reports: Patient, Family () History Limitations: Reports: No Limitations - History of Present Illness INITIAL COMMENTS - FREE TEXT/NARRATIVE: Lyndsay is a 72yo female brought in by [facility] this evening for worsening shortness of breath the past 2 days, worse this afternoon. She has minimal cough, no f/c/s, no n/v/d. She does have sensation of left sided chest pain. She has COPD and now lung cancer- Oncologist is Dr. Beltrán. She was recently hospitalized at [facility] for SOB from 10/27/17 to . She was placed on supplemental oxygen one week ago at 4L/NC. She underwent bronchoscope on 10/30/17. She was started on immune therapy, Opdivo on Thursday and was discharged the following day. She is scheduled to see Dr. Beltrán in follow up the end of this week. PCP is Dr. Church Onset: Gradual Duration: Day(s): (2-3) Location: Reports: Chest Improves with: Reports: None Worsens with: Reports: Movement Associated Symptoms: Reports: Chest Pain, Loss of Appetite, Malaise, Shortness of Breath. Denies: Diaphoresis, Nausea/Vomiting - Related Data Allergies Allergy/AdvReac Type Severity Reaction Status Date / Time aspirin Allergy Anaphylactic Verified 11/03/17 17:54 Shock Home Meds: Home Meds Acetaminophen [Tylenol] 650 mg PO Q4H PRN 05/27/17 [History] Albuterol [Proair HFA] 2 puff INH Q4H PRN 05/27/17 [History] Benzonatate [Tessalon Perle] 200 mg PO TID PRN 05/27/17 [History] Fluticasone/Salmeterol [Advair 500-50] 1 puff INH BID 05/27/17 [History] Hydrocodone/Acetaminophen [[place] 5-325] 1 tab PO Q4H PRN 05/27/17 [History] LORazepam 1 tab PO Q6H PRN 05/27/17 [History] Saliva Substitution Combo No.9 [Biotene] 1 dose PO QID PRN 05/27/17 [History] Tiotropium [Spiriva Handihaler] 2 puff INH DAILY 05/27/17 [History] buPROPion HCl [Wellbutrin Xl] 300 mg PO DAILY 05/27/17 [History] Albuterol [IMW: Ventolin HFA] 1 puff INH .TWICE DAILY PRN #18 gm 06/30/17 [Rx] amLODIPine [Norvasc] 5 mg PO BEDTIME #20 tablet 06/30/17 [Rx] Azithromycin [Zithromax] 500 mg PO DAILY #5 tab 11/03/17 [Rx] Budesonide 1 mg IH BID 11/03/17 [History] Losartan [Cozaar] 25 mg PO DAILY 11/03/17 [History] Propranolol HCl [Inderal Xl] 80 mg PO DAILY 11/03/17 [History] Past Medical History HEENT History: Reports: Impaired Vision, Other (See Below) Other HEENT History: wears glasses, contacts Cardiovascular History: Reports: Hypertension Respiratory History: Reports: Bronchitis, Recurrent, COPD, SOB, Other (See Below ) Other Respiratory History: bilateral lung cancer Gastrointestinal History: Reports: Chronic Constipation, GERD Genitourinary History: Reports: Other (See Below) Other Genitourinary History: breast lumpectomy [employer] History: Reports: Musculoskeletal History: Reports: Osteoarthritis Neurological History: Reports: Vertigo Other Neuro History: vertigo Psychiatric History: Reports: Anxiety Endocrine/Metabolic History: Reports: None Hematologic History: Reports: None Immunologic History: Reports: None Oncologic (Cancer) History: Reports: Breast, Lung Dermatologic History: Reports: Other (See Below) Other Dermatologic History: sebaceous cyst to back - Past Surgical History Cardiovascular Surgical History: Reports: None Respiratory Surgical History: Reports: Other (See Below) Other Respiratory Surgeries/Procedures: bronchoscopy GI Surgical History: Reports: Appendectomy Female Surgical History: Reports: Breast Biopsy, Hysterectomy Endocrine Surgical History: Reports: None Musculoskeletal Surgical History: Reports: None Oncologic Surgical History: Reports: Biopsy of Breast, Lumpectomy Dermatological Surgical History: Reports: None Social & Family History - Family History Family Medical History: Noncontributory - Tobacco Use Smoking Status *Q: Former Smoker Used Tobacco, but Quit: Yes Month/Year Tobacco Last Used: 08/2017 - Caffeine Use Caffeine Use: Reports: Coffee - Recreational Drug Use Recreational Drug Use: No ED ROS GENERAL - Review of Systems Review Of Systems: See Below Constitutional: Reports: Malaise, Weakness, Fatigue, Decreased Appetite, Other ( weight is around 88lbs and has been stable there for a few months). Denies: Fever, Chills HEENT: Reports: No Symptoms Respiratory: Reports: Shortness of Breath, Pleuritic Chest Pain, Cough (minimal - reports much improved since bronchoscopy). Denies: Hemoptysis Cardiovascular: Reports: Chest Pain (lt sided pressure), Dyspnea on Exertion ( worse the past 2-3 days). Denies: Edema GI/Abdominal: Reports: No Symptoms : Reports: No Symptoms Neurological: Reports: No Symptoms Psychiatric: Reports: Anxiety ED EXAM, GENERAL - Physical Exam Exam: See Below Exam Limited By: No Limitations General Appearance: Alert, WD/WN, No Apparent Distress Eye Exam: Bilateral Eye: EOMI, PERRL Ears: Normal External Exam, Hearing Grossly Normal Nose: Normal Inspection Throat/Mouth: Normal Inspection, Normal Lips, Normal Voice, No Airway Compromise Head: Atraumatic, Normocephalic Neck: Normal Inspection, Other (very thin, can see port through her neck) Respiratory/Chest: Respiratory Distress (mild), Decreased Breath Sounds ( throughout), Rhonchi, Wheezing, Prolonged Expiration Cardiovascular: Regular Rate, Rhythm, No Edema, No Murmur Peripheral Pulses: 2+: Posterior Tibial (L), Posterior Tibial (R), Dorsalis Pedis (L), Dorsalis Pedis (R) GI/Abdominal: Normal Bowel Sounds, Soft, Non-Tender, Other (thin, cachetic) (Female) Exam: Deferred Rectal (Female) Exam: Deferred Back Exam: Other (dressing to mid thoracic spine removed to show large sebaceous cyst that is draining; I was able to express small amount of thick white discharge- culture is obtained. With this expression of material patient does have pain. This lesion is directly over her vertebra, she is very thin. ) Extremities: Normal Inspection, Normal Range of Motion, No Pedal Edema, Normal Capillary Refill Neurological: Alert, Oriented, CN II-XII Intact, Normal Cognition Psychiatric: Anxious (the more we talk the less anxious she becomes, breathing slows a little and she apears more comfortable) Skin Exam: Warm, Dry, Intact Course - Vital Signs Last Recorded V/S: Last Vital Signs Temp 98.8 F 11/03/17 17:40 Pulse 81 11/03/17 17:40 Resp 28 H 11/03/17 17:40 BP 169/99 H 11/03/17 17:40 Pulse Ox 84 L 11/03/17 17:40 - Orders/Labs/Meds Orders: Active Orders 24 hr Category Date Time Status EKG Documentation Completion [RC] STAT Care 11/03/17 18:29 Active RT Aerosol Therapy [RC] ASDIRECTED Care 11/03/17 18:32 Active STREP PNEUMONIAE ANTIGEN [MREF] Stat Lab 11/03/17 21:00 Ordered Labs: Laboratory Tests 11/03/17 11/03/17 11/03/17 Range/Units 18:50 18:50 18:50 WBC 11.99 H (3.98-10.04) K/mm3 RBC 4.44 (3.98-5.22) M/mm3 Hgb 13.5 (11.2-15.7) gm/L Hct 41.7 (34.1-44.9) % MCV 93.9 (79.4-94.8) fl MCH 30.4 (25.6-32.2) pg MCHC 32.4 (32.2-35.5) g/dl RDW Std Deviation 43.6 (36.4-46.3) fL Plt Count 354 (182-369) K/mm3 MPV 10.0 (9.4-12.3) fl Neut % (Auto) 80.4 H (34.0-71.1) % Lymph % (Auto) 9.2 L (19.3-51.7) % [place] % (Auto) 8.5 (4.7-12.5) % Eos % (Auto) 1.1 (0.7-5.8) Baso % (Auto) 0.3 (0.1-1.2) % Neut # (Auto) 9.64 H (1.56-6.13) K/mm3 Lymph # (Auto) 1.10 L (1.18-3.74) K/mm3 [place] # (Auto) 1.02 H (0.24-0.36) K/mm3 Eos # (Auto) 0.13 (0.04-0.36) K/mm3 Baso # (Auto) 0.04 (0.01-0.08) K/mm3 Manual Slide Review Normal smear Sodium 139 (136-145) mEq/L Potassium 3.8 (3.5-5.1) mEq/L Chloride 101 (98-107) mEq/L Carbon Dioxide 30 (21-32) mEq/L Anion Gap 11.8 (5-15) BUN 9 (7-18) mg/dL Creatinine 0.7 (0.55-1.02) mg/dL Est Cr Clr Drug Dosing 53.01 mL/min Estimated GFR (MDRD) > 60 (>60) mL/min BUN/Creatinine Ratio 12.9 L (14-18) Glucose 95 (80-115) mg/dL Calcium 8.9 (8.5-10.1) mg/dL Magnesium 1.2 L (1.8-2.4) mg/dl Total Bilirubin 0.5 (0.2-1.0) mg/dL AST 18 (15-37) U/L ALT 8 L (14-59) U/L Alkaline Phosphatase 76 (46-116) U/L Troponin I < 0.017 (0.00-0.056) ng/mL C-Reactive Protein 4.0 H* (<1.0) mg/dL NT-Pro-B Natriuret Pep 1760 H (0-125) pg/mL Total Protein 6.4 (6.4-8.2) g/dl Albumin 2.5 L (3.4-5.0) g/dl Globulin 3.9 gm/dL Albumin/Globulin Ratio 0.6 L (1-2) Mycoplasma pneumon IgM (NEGATIVE) 11/03/17 Range/Units 18:50 WBC (3.98-10.04) K/mm3 RBC (3.98-5.22) M/mm3 Hgb (11.2-15.7) gm/L Hct (34.1-44.9) % MCV (79.4-94.8) fl MCH (25.6-32.2) pg MCHC (32.2-35.5) g/dl RDW Std Deviation (36.4-46.3) fL Plt Count (182-369) K/mm3 MPV (9.4-12.3) fl Neut % (Auto) (34.0-71.1) % Lymph % (Auto) (19.3-51.7) % [place] % (Auto) (4.7-12.5) % Eos % (Auto) (0.7-5.8) Baso % (Auto) (0.1-1.2) % Neut # (Auto) (1.56-6.13) K/mm3 Lymph # (Auto) (1.18-3.74) K/mm3 [place] # (Auto) (0.24-0.36) K/mm3 Eos # (Auto) (0.04-0.36) K/mm3 Baso # (Auto) (0.01-0.08) K/mm3 Manual Slide Review Sodium (136-145) mEq/L Potassium (3.5-5.1) mEq/L Chloride (98-107) mEq/L Carbon Dioxide (21-32) mEq/L Anion Gap (5-15) BUN (7-18) mg/dL Creatinine (0.55-1.02) mg/dL Est Cr Clr Drug Dosing mL/min Estimated GFR (MDRD) (>60) mL/min BUN/Creatinine Ratio (14-18) Glucose (80-115) mg/dL Calcium (8.5-10.1) mg/dL Magnesium (1.8-2.4) mg/dl Total Bilirubin (0.2-1.0) mg/dL AST (15-37) U/L ALT (14-59) U/L Alkaline Phosphatase (46-116) U/L Troponin I (0.00-0.056) ng/mL C-Reactive Protein (<1.0) mg/dL NT-Pro-B Natriuret Pep (0-125) pg/mL Total Protein (6.4-8.2) g/dl Albumin (3.4-5.0) g/dl Globulin gm/dL Albumin/Globulin Ratio (1-2) Mycoplasma pneumon IgM Positive H (NEGATIVE) Meds: Medications Discontinued Medications Generic Name Dose Route Start Last Admin Trade Name Freq PRN Reason Stop Dose Admin Albuterol/Ipratropium 3 ml 11/03/17 18:32 11/03/17 18:58 Duoneb 3.0-0.5 Mg/3 Ml NEB 11/03/17 18:33 3 ml ONETIME ONE Administration Heparin Sodium (Porcine) 500 units 11/03/17 21:51 11/03/17 21:59 Heparin Lock Flush 100 Units/Ml FLUSH 11/03/17 21:52 500 units ASDIRECTED ONE Administration Sodium Chloride 1,000 mls @ 500 mls/hr 11/03/17 18:30 11/03/17 18:55 Normal Saline IV 11/03/17 20:29 500 mls/hr ONETIME ONE Administration Magnesium Sulfate 2 gm/ Premix 50 mls @ 25 mls/hr 11/03/17 19:42 11/03/17 19: 54 IV 11/03/17 21:41 25 mls/hr ONETIME ONE Administration Lorazepam 0.5 mg 11/03/17 18:31 11/03/17 18:57 Ativan IVPUSH 11/03/17 18:32 0.5 mg ONETIME ONE Administration - Re-Assessments/Exams Free Text/Narrative Re-Assessment/Exam: 11/03/17 19:28 Patient is initially given 1L NS IV Free Text/Narrative Re-Assessment/Exam: 11/03/17 21:03 Patient resting/sleeping at this time. Review labs, CXR with - low magnesium at 1.2 is being replaced with IV mag. O2 saturations are 93-94%. Discuss options of watching overnight vs DC home. and patient wish discharge home. Will finish magnesium infusion and patient can be dc'd home with f/up with PCP AUGUSTIN Durham in 48 hours as previously scheduled. Free Text/Narrative Re-Assessment/Exam: 11/03/17 23:01 Mycoplasma pneumonia antigen returned positive- patient had been discharged home prior to this lab return. Call placed to [facility], reviewed lab finding with him, treatment is zithromax for 5 days, rx sent to [facility] and will hand picker tomorrow. States patient is settled in and doing well. Departure - Departure Time of Disposition: 21:55 Disposition: Home, Self-Care 01 Condition: Good, Fair Clinical Impression: Psychogenic air hunger, Hypomagnesemia COPD (chronic obstructive pulmonary disease) Qualifiers: COPD type: unspecified COPD Qualified Code(s): J44.9 - Chronic obstructive pulmonary disease, unspecified Lung cancer Qualifiers: Laterality: unspecified laterality Lung location: unspecified part of lung Qualified Code(s): C34.90 - Malignant neoplasm of unspecified part of unspecified bronchus or lung - Discharge Information *PRESCRIPTION DRUG MONITORING PROGRAM REVIEWED*: Not Applicable *COPY OF PRESCRIPTION DRUG MONITORING REPORT IN PATIENT VERNELL: Not Applicable Instructions: Chronic Obstructive Pulmonary Disease Exacerbation, [id number] , Shortness of Breath, Adult, [id number], Hypomagnesemia Referrals: Mili Terrell [facility] [Ordering Only Provider] - Forms: ED Department Discharge Additional Instructions: Push fluids You may use your rescue inhaler as needed every 2 hours You may use your ativan as needed every 4 hours Magnesium supplement once daily; recommend recheck magnesium level at follow up with your PCP, AUGUSTIN Durham on Return to ER if needed for worsening symptoms, SOB - My Orders Last 24 Hours: My Active Orders 11/03/17 18:29 EKG Documentation Completion [RC] STAT 11/03/17 18:32 RT Aerosol Therapy [RC] ASDIRECTED 11/03/17 21:00 STREP PNEUMONIAE ANTIGEN [MREF] Stat - Assessment/Plan Last 24 Hours: My Active Orders 11/03/17 18:29 EKG Documentation Completion [RC] STAT 11/03/17 18:32 RT Aerosol Therapy [RC] ASDIRECTED 11/03/17 21:00 STREP PNEUMONIAE ANTIGEN [MREF] Stat
[2017-11-03] MEDS ORDERED: Magnesium Sulfate/Water 2 GM in Premix Bag 1 BAG IV ONE (19:42)
== END 2017-11-03 22:04 | disposition home or self-care (01) ==
LOC: JD.ED 17:39
DX: F45.8 Other somatoform disorders (principal); E83.42 Hypomagnesemia; K21.9 Gastro-esophageal reflux disease without esophagitis; I10 Essential (primary) hypertension; J44.9 Chronic obstructive pulmonary disease, unspecified; C34.90 Malignant neoplasm of unspecified part of unspecified bronchus or lung; Z88.8 Allergy status to other drugs, medicaments and biological substances; Z79.899 Other long term (current) drug therapy; Z87.891 Personal history of nicotine dependence
CPT/HCPCS: 36415; 71046; 80053; 83735; 83880; 84484; 85025; 86140; 86738; 87899; 93005; 94640; 96361; 96365; 96366; 96375; 99285; J1642; J2060; J7040; 99284; J3475

== ENCOUNTER 2017-12-01 10:16 | Emergency (ER) | payer MEDICARE, BC ==
[2017-12-01] MEDS ORDERED: Sodium Chloride 0.9% 10 ML Syringe FLUSH PRN (11:32)
[2017-12-01] MEDS ORDERED: Sodium Chloride 0.9% 1,000 ML IV ONE (11:33)
--- NOTE | 2017-12-01 12:26 | EDM.PDOC ---
ED HPI GENERAL MEDICAL PROBLEM - General Chief Complaint: General Stated Complaint: NEEDS FLUIDS Time Seen by Provider: 12/01/17 11:18 Source of Information: Reports: Patient, Old Records (recent ER visit) History Limitations: Reports: No Limitations - History of Present Illness INITIAL COMMENTS - FREE TEXT/NARRATIVE: 72-year-old female sent over from the clinic by Dr. Beltrán for evaluation and treatment of weakness. Patient has stage IV adenocarcinoma of the lung diagnosed about 3-1/2 years ago. She frequently becomes dehydrated. She did get a liter fluids in the clinic yesterday. She is scheduled to get a liter fluids and some magnesium in the clinic today and then see Dr. Beltrán. She felt too weak to proceed with this. She reports symptoms of feeling achy, dizzy, lightheaded and fatigued. She denies any fevers or syncope. States she is coughing but is nothing out of the normal. No diarrhea. No abdominal pain out of the normal. Patient currently has stage IV adenocarcinoma of the lungs. She was on chemotherapy until May. She is now currently on a weekly immunotherapy. No cardiac history. No history of heart failure. - Related Data Allergies Allergy/AdvReac Type Severity Reaction Status Date / Time aspirin Allergy Anaphylactic Verified 12/01/17 10:48 Shock Home Meds: Home Meds Acetaminophen [Tylenol] 650 mg PO Q4H PRN 05/27/17 [History] Albuterol [Proair HFA] 2 puff INH Q4H PRN 05/27/17 [History] Benzonatate [Tessalon Perle] 200 mg PO TID PRN 05/27/17 [History] Fluticasone/Salmeterol [Advair 500-50] 1 puff INH BID 05/27/17 [History] Hydrocodone/Acetaminophen [Brooks 5-325] 1 tab PO Q4H PRN 05/27/17 [History] LORazepam 1 tab PO Q6H PRN 05/27/17 [History] buPROPion HCl [Wellbutrin Xl] 300 mg PO DAILY 05/27/17 [History] Albuterol [IMW: Ventolin HFA] 1 puff INH .TWICE DAILY PRN #18 gm 06/30/17 [Rx] Budesonide 1 mg IH BID 11/03/17 [History] Losartan [Cozaar] 25 mg PO DAILY 11/03/17 [History] Propranolol HCl [Inderal Xl] 80 mg PO DAILY 11/03/17 [History] Ondansetron [Ondansetron ODT] 4 mg PO Q4H PRN 12/01/17 [History] Past Medical History HEENT History: Reports: Impaired Vision, Other (See Below) Other HEENT History: wears glasses, contacts Cardiovascular History: Reports: Hypertension Respiratory History: Reports: Bronchitis, Recurrent, COPD, SOB, Other (See Below ) Other Respiratory History: bilateral lung cancer Gastrointestinal History: Reports: Chronic Constipation, GERD Genitourinary History: Reports: Other (See Below) Other Genitourinary History: breast lumpectomy 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: Musculoskeletal History: Reports: Osteoarthritis Neurological History: Reports: Vertigo Other Neuro History: vertigo Psychiatric History: Reports: Anxiety Endocrine/Metabolic History: Reports: None Hematologic History: Reports: None Immunologic History: Reports: None Oncologic (Cancer) History: Reports: Breast, Lung Dermatologic History: Reports: Other (See Below) Other Dermatologic History: sebaceous cyst to back - Past Surgical History Cardiovascular Surgical History: Reports: None Respiratory Surgical History: Reports: Other (See Below) Other Respiratory Surgeries/Procedures: bronchoscopy GI Surgical History: Reports: Appendectomy Female Surgical History: Reports: Breast Biopsy, Hysterectomy Endocrine Surgical History: Reports: None Musculoskeletal Surgical History: Reports: None Oncologic Surgical History: Reports: Biopsy of Breast, Lumpectomy Dermatological Surgical History: Reports: None Social & Family History - Family History Family Medical History: Noncontributory - Tobacco Use Smoking Status *Q: Former Smoker Used Tobacco, but Quit: Yes Month/Year Tobacco Last Used: 10/2017 - Caffeine Use Caffeine Use: Reports: Coffee - Recreational Drug Use Recreational Drug Use: Yes ED ROS GENERAL - Review of Systems Review Of Systems: See Below Constitutional: Reports: Malaise, Weakness, Fatigue. Denies: Fever Respiratory: Denies: Cough (chronic, no change) Cardiovascular: Reports: Lightheadedness, Syncope. Denies: Chest Pain GI/Abdominal: Reports: Abdominal Pain (chronic, no change), Diarrhea. Denies: Nausea, Vomiting ED EXAM, GENERAL - Physical Exam Exam: See Below Exam Limited By: No Limitations General Appearance: Alert, No Apparent Distress, Cachetic Eye Exam: Bilateral Eye: Normal Inspection Ears: Normal External Exam Nose: Normal Inspection Throat/Mouth: Normal Inspection, Normal Lips, Normal Oropharynx, Normal Voice, No Airway Compromise, Other (dry mucus membranes) Neck: Normal Inspection Respiratory/Chest: No Respiratory Distress, Decreased Breath Sounds, Wheezing ( diffuse bilateral) Cardiovascular: Normal Peripheral Pulses, Regular Rate, Rhythm, No Murmur Neurological: Alert, Oriented, Normal Cognition Psychiatric: Normal Affect, Normal Mood Skin Exam: Warm, Dry, Normal Color EKG INTERPRETATION EKG Date: 12/01/17 Time: 12:30 Rhythm: NSR Rate (Beats/Min): 79 [place]: Normal P-Wave: Present QRS: Normal ST-T: Normal QT: Normal EKG Interpretation Comments: NSR at 79 bpm. T wave inversion in V3, V4, V5, V6, III and aVF. Similar to ekg. Reviewed by myself and Dr. Jennifer Gray. Course - Vital Signs Last Recorded V/S: Last Vital Signs Temp 98.8 F 12/01/17 10:45 Pulse 79 12/01/17 10:45 Resp 16 12/01/17 10:45 BP 133/78 12/01/17 10:45 Pulse Ox 96 12/01/17 13:03 - Orders/Labs/Meds Labs: Laboratory Tests 12/01/17 12/01/17 12/01/17 Range/Units 12:00 12:00 12:00 WBC 8.05 (3.98-10.04) K/mm3 RBC 3.81 L (3.98-5.22) M/mm3 Hgb 11.4 (11.2-15.7) gm/L Hct 37.0 (34.1-44.9) % MCV 97.1 H (79.4-94.8) fl MCH 29.9 (25.6-32.2) pg MCHC 30.8 L (32.2-35.5) g/dl RDW Std Deviation 47.8 H (36.4-46.3) fL Plt Count 297 (182-369) K/mm3 MPV 10.4 (9.4-12.3) fl Neutrophils % (Manual) 63 H (40-60) % Band Neutrophils % 0 (0-10) % Lymphocytes % (Manual) 26 (20-40) % Atypical Lymphs % 0 % Monocytes % (Manual) 8 (2-10) % Eosinophils % (Manual) 3 (0.7-5.8) % Basophils % (Manual) 0 L (0.1-1.2) Platelet Estimate Adequate RBC Morph Comment Normal Sodium 142 (136-145) mEq/L Potassium 3.5 (3.5-5.1) mEq/L Chloride 107 (98-107) mEq/L Carbon Dioxide 32 (21-32) mEq/L Anion Gap 6.5 (5-15) BUN 9 (7-18) mg/dL Creatinine 0.6 (0.55-1.02) mg/dL Est Cr Clr Drug Dosing 51.85 mL/min Estimated GFR (MDRD) > 60 (>60) mL/min BUN/Creatinine Ratio 15.0 (14-18) Glucose 106 (80-115) mg/dL Calcium 8.2 L (8.5-10.1) mg/dL Magnesium 1.4 L (1.8-2.4) mg/dl Total Bilirubin 0.2 (0.2-1.0) mg/dL AST 14 L (15-37) U/L ALT 14 (14-59) U/L Alkaline Phosphatase 101 (46-116) U/L Troponin I < 0.017 (0.00-0.056) ng/mL C-Reactive Protein 0.6 (<1.0) mg/dL NT-Pro-B Natriuret Pep 1825 H (0-125) pg/mL Total Protein 5.6 L (6.4-8.2) g/dl Albumin 2.2 L (3.4-5.0) g/dl Globulin 3.4 gm/dL Albumin/Globulin Ratio 0.7 L (1-2) Urine Color (Yellow) Urine Appearance (Clear) Urine pH (5.0-8.0) Ur Specific [place] (1.005-1.030) Urine Protein (Negative) Urine Glucose (UA) (Negative) Urine Ketones (Negative) Urine Occult Blood (Negative) Urine Nitrite (Negative) Urine Bilirubin (Negative) Urine Urobilinogen (0.2-1.0) Ur Leukocyte Esterase (Negative) Urine RBC (0-5) /hpf Urine WBC (0-5) /hpf Ur Epithelial Cells (0-5) /hpf Urine Bacteria (FEW) /hpf Hyaline Casts (0-5) /lpf Urine Mucus (FEW) /hpf 12/01/17 Range/Units 14:20 WBC (3.98-10.04) K/mm3 RBC (3.98-5.22) M/mm3 Hgb (11.2-15.7) gm/L Hct (34.1-44.9) % MCV (79.4-94.8) fl MCH (25.6-32.2) pg MCHC (32.2-35.5) g/dl RDW Std Deviation (36.4-46.3) fL Plt Count (182-369) K/mm3 MPV (9.4-12.3) fl Neutrophils % (Manual) (40-60) % Band Neutrophils % (0-10) % Lymphocytes % (Manual) (20-40) % Atypical Lymphs % % Monocytes % (Manual) (2-10) % Eosinophils % (Manual) (0.7-5.8) % Basophils % (Manual) (0.1-1.2) Platelet Estimate RBC Morph Comment Sodium (136-145) mEq/L Potassium (3.5-5.1) mEq/L Chloride (98-107) mEq/L Carbon Dioxide (21-32) mEq/L Anion Gap (5-15) BUN (7-18) mg/dL Creatinine (0.55-1.02) mg/dL Est Cr Clr Drug Dosing mL/min Estimated GFR (MDRD) (>60) mL/min BUN/Creatinine Ratio (14-18) Glucose (80-115) mg/dL Calcium (8.5-10.1) mg/dL Magnesium (1.8-2.4) mg/dl Total Bilirubin (0.2-1.0) mg/dL AST (15-37) U/L ALT (14-59) U/L Alkaline Phosphatase (46-116) U/L Troponin I (0.00-0.056) ng/mL C-Reactive Protein (<1.0) mg/dL NT-Pro-B Natriuret Pep (0-125) pg/mL Total Protein (6.4-8.2) g/dl Albumin (3.4-5.0) g/dl Globulin gm/dL Albumin/Globulin Ratio (1-2) Urine Color Yellow (Yellow) Urine Appearance Clear (Clear) Urine pH 6.0 (5.0-8.0) Ur Specific [place] 1.025 (1.005-1.030) Urine Protein Trace H (Negative) Urine Glucose (UA) Negative (Negative) Urine Ketones Negative (Negative) Urine Occult Blood Negative (Negative) Urine Nitrite Negative (Negative) Urine Bilirubin Negative (Negative) Urine Urobilinogen 0.2 (0.2-1.0) Ur Leukocyte Esterase Negative (Negative) Urine RBC 0-5 (0-5) /hpf Urine WBC 0-5 (0-5) /hpf Ur Epithelial Cells 0-5 (0-5) /hpf Urine Bacteria Few (FEW) /hpf Hyaline Casts 0-5 (0-5) /lpf Urine Mucus Moderate H (FEW) /hpf Meds: Medications Discontinued Medications Generic Name Dose Route Start Last Admin Trade Name Freq PRN Reason Stop Dose Admin Albuterol 2.5 mg 12/01/17 12:53 12/01/17 13:02 Proventil Neb Soln NEB 12/01/17 12:54 2.5 mg ONETIME ONE Administration Heparin Sodium (Porcine) 500 units 12/01/17 14:53 12/01/17 14:59 Heparin Lock Flush 100 Units/Ml FLUSH 12/01/17 14:54 500 units ASDIRECTED ONE Administration Sodium Chloride 1,000 mls @ 500 mls/hr 12/01/17 11:33 12/01/17 12:06 Normal Saline IV 12/01/17 13:32 500 mls/hr ONETIME ONE Administration Magnesium Sulfate 2 gm/ Premix 50 mls @ 50 mls/hr 12/01/17 13:15 12/01/17 13: 30 IV 12/01/17 14:14 50 mls/hr ONETIME ONE Administration Ondansetron HCl 4 mg 12/01/17 13:16 12/01/17 13:23 Zofran IVPUSH 12/01/17 13:17 4 mg ONETIME ONE Administration Sodium Chloride 10 ml 12/01/17 11:32 12/01/17 12:07 Saline Flush FLUSH 10 ml ASDIRECTED PRN Administration Keep Vein Open - Radiology Interpretation Free Text/Narrative:: Chest: Portable view of the chest was obtained. Comparison: Prior chest x-ray of 11/03/17. Diffuse parenchymal density is seen within both lungs. When allowing for slightly bowling or skating front desk clerk technique on current exam findings are felt to be fairly stable from previous exam. Heart size appears unchanged. Upper mediastinum is unchanged. Right-sided infusion port is seen. Impression: 1. When allowing for slight differences in technique, no significant change is seen within the chest from prior study. - Re-Assessments/Exams Free Text/Narrative Re-Assessment/Exam: 12/01/17 14:47 Reviewed the labs and imaging with the patient. Feels greatly improved after magnesium and fluids. Offered more fluids but patient feels comfortable going home at this time. Discharge instructions as documented. Departure - Departure Time of Disposition: 14:54 Disposition: Home, Self-Care 01 Condition: Fair Clinical Impression: Dehydration, Hypomagnesemia - Discharge Information *PRESCRIPTION DRUG MONITORING PROGRAM REVIEWED*: No *COPY OF PRESCRIPTION DRUG MONITORING REPORT IN PATIENT VERNELL: No Instructions: Hypomagnesemia, Dehydration, Adult, [id number] Referrals: Farooq Beltrán MD [Primary Care Provider] - Forms: ED Department Discharge Additional Instructions: Follow-up with Dr. Beltrán this week or next week. [employer] makes a liquid magnesium that can be flavored. Recommend picking up some of this it is available OTC. Please return to the ER should her symptoms change or worsen.
[2017-12-01] MEDS ORDERED: Albuterol 0.083% 2.5 MG/3 ML Neb Soln NEB ONE (12:53)
--- NOTE | 2017-12-01 12:53 | CR ---
Chest: Portable view of the chest was obtained. Comparison: Prior chest x-ray of 11/03/17. Diffuse parenchymal density is seen within both lungs. When allowing for slightly music therapist technique on current exam findings are felt to be fairly stable from previous exam. Heart size appears unchanged. Upper mediastinum is unchanged. Right-sided infusion port is seen. Impression: 1. When allowing for slight differences in technique, no significant change is seen within the chest from prior study. Diagnostic code #3
[2017-12-01] MEDS ORDERED: Magnesium Sulfate/Water 2 GM in Premix Bag 1 BAG IV ONE (13:15)
[2017-12-01] MEDS ORDERED: Ondansetron 4 MG/2 ML SDV IVPUSH ONE (13:16)
== END 2017-12-01 15:07 | disposition home or self-care (01) ==
LOC: JD.ED 10:16
DX: E83.42 Hypomagnesemia (principal); E86.0 Dehydration; Z88.8 Allergy status to other drugs, medicaments and biological substances; Z79.899 Other long term (current) drug therapy; Z87.891 Personal history of nicotine dependence; Z88.6 Allergy status to analgesic agent; R06.02 Shortness of breath
CPT/HCPCS: 36415; 71045; 80053; 81001; 83735; 83880; 84484; 85007; 85027; 86140; 93005; 94640; 96361; 96365; 96375; 99285; J1642; J2405; J7040; J7050; 93010; 99284; J3475